=== PATIENT | male | born 1950 | race Caucasian/White ===

== ENCOUNTER 2020-04-09 09:31 | Outpatient (REF) | payer MEDICARE, SELFPAY ==
[2020-04-09 11:47] LABS: Anion Gap 11 (12-20); Blood Urea Nitrogen 19 mg/dL (9-16); Calcium 8.7 mg/dL (8.4-10.2); Carbon Dioxide 29 mmol/L (22-29); Chloride 104 mmol/L (96-108); Cholesterol 219 mg/dL; Estimated Glomerular Filt Rate > 60; Glucose Fasting 100 mg/dL (60-99); HDL Cholesterol 67 mg/dL; LDL Cholesterol Calculated 140 mg/dl; Potassium 4.6 mmol/l (3.3-5.1); Sodium 139 mmol/L (135-145); Triglycerides 63 mg/dL
[2020-04-09 11:56] LABS: Prostate Specific Antigen Scr 1.37 ng/mL (<0.05-4.0); TSH reflex Free T4 1.79 mIU/mL (0.32-4.0)
== END 2020-04-09 09:32 | disposition home or self-care (01) ==
LOC: HO.HMGCLDS 09:31
PROVIDERS: PCP Nurse Practitioner Family; Visit Provider Nurse Practitioner Family
DX: E78.5 Hyperlipidemia, unspecified (principal); R42 Dizziness and giddiness; Z12.5 Encounter for screening for malignant neoplasm of prostate
CPT/HCPCS: 80048; 80061; 84153; 84443

== ENCOUNTER → 2020-04-25 14:14 | Outpatient (BNVA) | payer MEDICARE, SELFPAY | PROVIDERS: PCP Nurse Practitioner Family; Visit Provider Physician Assistant Medical | DX: Z76.89 Persons encountering health services in other specified circumstances (principal) | CPT/HCPCS: G0296 ==

== ENCOUNTER 2020-05-08 12:12 | Outpatient (REF) | payer MEDICARE, SELFPAY ==
[2020-05-08 13:35] LABS: Hematocrit 47.1 % (42-52); Hemoglobin 15.7 g/dl (14.0-18.0); Mean Corpuscular HGB Conc 33.3 g/dl (31.0-36.0); Mean Corpuscular Hemoglobin 31.5 pg (27.0-33.0); Mean Corpuscular Volume 94.4 fL (80-98); Mean Platelet Volume 11.5 fL (9.4-12.4); Platelet Count 185 X10*3/uL (160-400); Red Blood Count 4.99 X10*6/uL (4.60-5.80); Red Cell Distribution Width 13.5 % (11.0-16.0); White Blood Count 7.6 X10*3/uL (4.8-10.8)
[2020-05-08 14:13] LABS: Alanine Aminotransferase 11 U/L (0-40); Albumin Level 4.1 g/dL (3.5-5.0); Alkaline Phosphatase 44 U/L (39-117); Anion Gap 10 (12-20); Aspartate Amino Transferase 11 U/L (5-37); Bilirubin Total 0.5 mg/dL (0.0-1.0); Blood Urea Nitrogen 9 mg/dL (9-16); Calcium 8.5 mg/dL (8.4-10.2); Carbon Dioxide 30 mmol/L (22-29); Chloride 106 mmol/L (96-108); Estimated Glomerular Filt Rate > 60; Glucose Random 98 mg/dL (60-115); Potassium 4.5 mmol/l (3.3-5.1); Sodium 141 mmol/L (135-145); Total Protein 6.3 g/dL (6.5-8.0)
== END 2020-05-08 12:13 | disposition home or self-care (01) ==
LOC: HO.HMGCLDS 12:12
PROVIDERS: PCP Nurse Practitioner Family; Visit Provider Nurse Practitioner Family
DX: R42 Dizziness and giddiness (principal); Z12.11 Encounter for screening for malignant neoplasm of colon
CPT/HCPCS: 36415; 80053; 85027

== ENCOUNTER 2020-05-09 09:00 | Outpatient (REF) | payer MEDICARE, SELFPAY ==
--- NOTE | 2020-05-09 09:03 | CT_ITS ---
EXAMINATION: CT CHEST SCREENING CLINICAL INFORMATION: Nicotine dependence. COMPARISON: None. TECHNIQUE: Multidetector volumetric CT imaging of the chest is performed without contrast using low dose technique. Additional 2D coronal and sagittal reformatted images and axial 3D maximum intensity projection (MIP) images are generated on the CT workstation. This CT examination was performed using dose optimization techniques as appropriate, variously including the following: *Automated exposure control *Adjustment of mA and/or kV according to patient size (this includes techniques or standardized protocols for targeted exams where dose is matched to indication/reason for exam; i.e. extremities or head) *Use of iterative reconstruction technique DLP: 64 mGy-cm FINDINGS: LUNGS: There are punctate 1-2 mm micronodules in the right upper lobe axial image 38/5, image 47/5, left upper lobe image 64/5, 179/5, tiny 1 mm calcified nodules granuloma versus vascular right lower lobe superior segment image 234/5. The lungs are hyperinflated with minimal atelectasis or scarring right lung base. MEDIASTINUM: The thyroid lobes are symmetrical and normal. The central trachea and the bronchi are widely patent. Heart size and the great vessels are normal caliber. Minimal coronary artery calcifications are seen. No pericardial effusion seen. No abnormal mediastinal lymph nodes seen. PLEURA: There is no pleural effusion, calcification or thickening. AXILLA: No abnormal axillary lymph nodes seen. The chest wall appears unremarkable. UPPER ABDOMEN: Visualized liver, spleen, pancreas, and bilateral adrenal glands are unremarkable. OSSEOUS STRUCTURES: No lytic or sclerotic process seen. There is mild ventral spondylosis mid dorsal spine. CT/CT lung screening IMPRESSION: Hyperinflation with small micronodules. No mass or consolidation seen. ASSESSMENT: Lung-RADS category 2: Benign. RECOMMENDATION: Low-dose annual CT chest.
== END 2020-05-09 09:01 | disposition home or self-care (01) ==
LOC: HO.CT 09:00
PROVIDERS: PCP Nurse Practitioner Family; Visit Provider Physician Assistant Medical
DX: Z12.2 Encounter for screening for malignant neoplasm of respiratory organs (principal); F17.210 Nicotine dependence, cigarettes, uncomplicated
CPT/HCPCS: 71250

== ENCOUNTER 2020-09-01 06:59 | Outpatient (REF) | payer MEDICARE, SELFPAY ==
[2020-09-01 11:54] LABS: Cholesterol 201 mg/dL; HDL Cholesterol 60 mg/dL; LDL Cholesterol Calculated 124 mg/dl; Triglycerides 87 mg/dL
== END 2020-09-01 07:00 | disposition home or self-care (01) ==
LOC: HO.HMGCLDS 06:59
PROVIDERS: PCP Nurse Practitioner Family; Visit Provider Nurse Practitioner Family
DX: E78.5 Hyperlipidemia, unspecified (principal)
CPT/HCPCS: 36415; 80061

== ENCOUNTER 2020-10-28 08:54 | Day surgery (SDC) | payer MEDICARE, SELFPAY ==
--- NOTE | 2020-10-27 09:48 | HO.ANESPROP2 ---
Documented by User: Katerina Gloria 10/27/20 09:49 HPI - Anesthesia Eval Consult details Narrative: 70yo M for Colonoscopy PMFSH Active Problems Active Problems: All Active Problems (Updated 04/25/20 @ 13:26 by Anna Martinez PA-C) Nicotine dependence, cigarettes, uncomplicated (Acute) Tubular adenoma of colon (Acute) Dyslipidemia (Acute) Smoker (Acute) Screening for malignant neoplasm of colon (Acute) Dizziness (Acute) Screening PSA (prostate specific antigen) (Acute) Physical exam (Acute) Past Medical History Medical History GERD (gastroesophageal reflux disease) Nicotine dependence, cigarettes, uncomplicated Smoker Tubular adenoma of colon Family History Family History Father Parkinsons disease Mother No problems noted. Surgical History Surgical History History of appendectomy History of colonoscopy History of right inguinal hernia repair 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 (Updated 10/28/20 @ 10:57 by Kristan Fraser) Alcohol intake: current Alcohol intake frequency: a few times a month Patient Tobacco Use Status: Current everyday Tobacco user Tobacco use type: Cigarette Cigarette Packs Per Day: 1 Cigarettes Per Day: 20.0 Years Smoked: 1990 Smoked in Last 30 Days: Yes Use of substances other than those prescribed or required for medical reasons: Yes Substance Use Type: Marijuana Last Used Substance Other:: Yesterday Are you DNR?: No Advance Directives: No Advance Directives Information Provided: Yes Recently lost weight without trying: Yes How much weight loss: 2-13 pounds Eating poorly because of decreased appetite: No Nutrition screen score: 3 Nutrition Risks: No Nutritional Risk Poor oral hygiene: No Meds Allergies Allergy/AdvReac Type Severity Reaction Status Date / Time No Known Allergies Allergy Unverified 09/02/20 11:14 Home Medications Medication Instructions Recorded Confirmed Last Taken Type No Known Home Meds 09/02/20 09/02/20 Unknown History Exam Exam Date and Time: October 27, 2020 0948 Assessment and Plan Assessment Anesthesia Assessment: Chart Reviewed Documented by User: Kristan Fraser 10/28/20 10:59 PMF Past Medical History Medical History GERD (gastroesophageal reflux disease) Nicotine dependence, cigarettes, uncomplicated Smoker Tubular adenoma of colon Family History Family History Father Parkinsons disease Mother No problems noted. Family history of problems with anesthesia: No Surgical History Surgical History History of appendectomy History of colonoscopy History of right inguinal hernia repair History of Problems with Anesthesia: No 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 (Updated 10/28/20 @ 10:57 by Kristan Fraser) Alcohol intake: current Alcohol intake frequency: a few times a month Patient Tobacco Use Status: Current everyday Tobacco user Tobacco use type: Cigarette Cigarette Packs Per Day: 1 Cigarettes Per Day: 20.0 Years Smoked: 1990 Smoked in Last 30 Days: Yes Use of substances other than those prescribed or required for medical reasons: Yes Substance Use Type: Marijuana Last Used Substance Other:: Yesterday Are you DNR?: No Advance Directives: No Advance Directives Information Provided: Yes Recently lost weight without trying: Yes How much weight loss: 2-13 pounds Eating poorly because of decreased appetite: No Nutrition screen score: 3 Nutrition Risks: No Nutritional Risk Poor oral hygiene: No Meds Allergies Allergy/AdvReac Type Severity Reaction Status Date / Time No Known Allergies Allergy Unverified 09/02/20 11:14 Home Medications Medication Instructions Recorded Confirmed Last Taken Type No Known Home Meds 09/02/20 09/02/20 Unknown History Exam Height,Weight and Vital Signs: Vital Signs Temp Pulse Resp BP Pulse Ox 10/28/20 09:17 97.8 F 75 16 124/85 98 Airway Mallampati Class: II TM Dist: >3cm Neck ROM: Full Loose/Missing/Broken Teeth: Yes Heart: RRR Lungs: CTAB Assessment and Plan Assessment Anesthesia Assessment: Anesthesia Plan Discussed and Chart Reviewed Final Anesthetic Review NPO: Yes ASA Class: II Final Preanesthetic Review: No Changes in Pt Med Stat, Meds/Allgs Chart Reviewed, Consent Obtained/Reviewed and Anes Risks/Benef Reviewed Patient Risk: Low Procedure Risk: Low Assessment/Block/Sedation in SS: Assess/Block/Sedation-SS Anesthetic Plan Anesthetic Plan: MAC: Disposition: Standard PACU
[2020-10-28 09:04] VITALS: BMI 26.2
[2020-10-28 09:17] VITALS: BP 124/85; PULSE 75; RESP 16; TEMP 36.6; O2SAT 98
[2020-10-28] MEDS: Lactated Ringers 1,000 ML 100 ML IVCONT (09:26)
--- NOTE | 2020-10-28 10:39 | P.OP_ITS ---
Operative Note Operative Note Date of Service: 10/28/20 Narrative: Pre-op diagnosis: Colon cancer screening, history of colon polyps Post-op diagnosis: other (Colon polyps, diverticulosis and hemorrhoids) Procedure: COLONOSCOPY TILL CECUM WITH SNARE POLYPECTOMY AND SUBMUCOSAL INJECTION Consent: Indications for the procedure and potential complications of bleeding, perforation, reaction to medications and missed diagnosis were discussed with the patient and informed consent was obtained. Instrument: Olympus PCF H 190 L variable stiffness pediatric colonoscope Monitoring: Vital signs and clinical assessment, intermittent blood pressure monitoring, continuous EKG monitoring, Pulse oximetry and Carbon Dioxide monitoring were done throughout the procedure. Colon withdrawl time was 55 minutes. Procedure: The patient was placed in the left lateral decubitis position and pre-procedure medications were administered. After a digital rectal examination of the ano-rectum, the video colonoscope was inserted into the rectum and advanced through the colon to the cecum. The colonoscope was slowly withdrawn in a retrograde panoramic fashion and the colon mucosa was carefully examined including a retroflexed view of the rectum. Findings and interventions are described below. Procedure Difficulty: Colon was long and tortuous and there was some loop formation, no maneuvers were required Findings: Terminal Ileum: Not evaluated Cecum: A 2 cms flat polyp raised with 5 cc of Orise solution and removed with a hot snare. Ascending Colon: Two 8 -15 mm sessile polyps raised with 3 cc of Orise solution and removed with a hot snare. 10 mm sessile polyp removed with a cold snare Transverse Colon: Two 8-10 mm sessile polyps removed with a cold snare Descending Colon: A 12-15 mm sessile polyp at 60 cms - difficult to snare due to position despite repositioning pt to a supine position. Donna ink injected just distal to the polyp. Polyp was removed with hot snare. Sigmoid Colon: Severe diverticulosis with luminal narrowing Rectum: Normal Ano-rectum: Moderate internal hemorrhoids Colon preparation: Good after some irrigation Impression and Post Procedure Diagnosis: Colonoscopy Findings: Seven medium to large sized polyps removed Moderate diverticulosis seen in the left colon Moderate hemorrhoids on retroflexed exam. Plan: Await pathology results. Patient will be sent a letter with results. Repeat Colonoscopy interval based on path results - in 1-2 years if polyps are adenomatous. Above findings were reviewed with the patient and colon polyps and diverticulosis handouts were given in the discharge area Surgeon: Nghia Drummond MD Anesthesia: MAC (Alyse Rucker CRNA) Was an Radiologic Technologist Chief used for this Procedure?: Yes Radiologic Technologist Chief: Wenceslao Sow Estimated blood loss (mL): 0 Pathology: other (A: CECAL POLYP-ORISE USED B: ASCENDING COLON POLYPS-ORISE USED C: TRANSVERSE COLON POLYP D: DESCENDING COLON POLYP) Condition: stable Disposition: PACU
--- NOTE | 2020-10-28 10:39 | MHC.SHP ---
Pre-Procedural Eval Section A The patient is an INPATIENT: No The History & Physical has been completed within 30 days and I have reviewed it.: No Section B Chief Complaint: Screening Details of Present Illness: Colon cancer screening, history of colon polyps Relevant Family History (Specify if Yes): No Relevant 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: Tobacco Use Present Medications: see Short Stay Collaborative assessment Medical History: Significant History (GERD (gastroesophageal reflux disease) Smoker) History of Previous Operations: Relevant previous surgery/procedure and date(s) (Appendectomy, right inguinal hernia repair, status post colonoscopy x 2) Allergies: Allergies Allergy/AdvReac Type Severity Reaction Status Date / Time No Known Allergies Allergy Unverified 09/02/20 11:14 Review of Systems Sugical H&P ROS: Negative: Constitution, Cardiovascular, Respiratory and Gastrointestinal Exam Surgical H&P Exam: Normal: Heart, Normal: Lungs, Normal: Extremities and Normal: Abdomen Plan Diagnosis/Plan: Unchanged I have reviewed the history and physical and performed a pertinent physical examination on my patient. No changes have occurred unless specified.
[2020-10-28 12:02] VITALS: BP 111/75; PULSE 82; RESP 16; TEMP 36.2; O2SAT 96
[2020-10-28 12:20] VITALS: BP 117/64; PULSE 50; RESP 16; O2SAT 98
[2020-10-28 12:40] VITALS: BP 113/77; PULSE 53; RESP 18; TEMP 36.1; O2SAT 98
[2020-10-28 13:09] VITALS: BP 125/74; PULSE 58; RESP 16; O2SAT 99
[2020-10-28 13:11] VITALS: BP 133/71; PULSE 59; RESP 20; O2SAT 98
== END 2020-10-28 13:52 | disposition home or self-care (01) ==
PROVIDERS: PCP Nurse Practitioner Family; Visit Provider Internal Medicine Gastroenterology
PROC: 0DJD8ZZ Inspection of Lower Intestinal Tract, Via Natural or Artificial Opening Endoscopic (ICD-10-PCS; CPT 45378; principal; 2020-10-28 10:00)
DX: Z12.11 Encounter for screening for malignant neoplasm of colon (principal); Z86.010 Personal history of colon polyps; D12.0 Benign neoplasm of cecum; D12.2 Benign neoplasm of ascending colon; D12.3 Benign neoplasm of transverse colon; D12.4 Benign neoplasm of descending colon; K57.30 Diverticulosis of large intestine without perforation or abscess without bleeding; K64.8 Other hemorrhoids; K21.9 Gastro-esophageal reflux disease without esophagitis; F17.210 Nicotine dependence, cigarettes, uncomplicated
CPT/HCPCS: 45385; 45381; 88305

== ENCOUNTER 2020-11-18 08:40 | Outpatient (REF) | payer MEDICARE, SELFPAY ==
--- NOTE | ~2020-11-18 | XR_ITS ---
EXAMINATION: FINGER AND LEFT SHOULDER X-RAY CLINICAL INFORMATION: Pain COMPARISON: None TECHNIQUE: 3 views of the right thumb and is of the left shoulder FINDINGS: Right thumb: No fracture or dislocation is seen. There is mild arthritis at the IP and MCP joints of the thumb with small osteophytes and joint space narrowing. There is joint space narrowing, osteophyte formation and radial subluxation of the first metacarpal bone with respect to the trapezium at the first [facility] joint. Soft tissues are unremarkable. Left shoulder: Bone alignment is normal. No fracture or dislocation is seen. There is arthritis at the glenohumeral and acromioclavicular joints with joint space narrowing and osteophyte formation. Soft tissues are unremarkable. 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
--- NOTE | ~2020-11-18 | XR_ITS ---
EXAMINATION: FINGER AND LEFT SHOULDER X-RAY CLINICAL INFORMATION: Pain COMPARISON: None TECHNIQUE: 3 views of the right thumb and is of the left shoulder FINDINGS: Right thumb: No fracture or dislocation is seen. There is mild arthritis at the IP and MCP joints of the thumb with small osteophytes and joint space narrowing. There is joint space narrowing, osteophyte formation and radial subluxation of the first metacarpal bone with respect to the trapezium at the first CORRECTION joint. Soft tissues are unremarkable. Left shoulder: Bone alignment is normal. No fracture or dislocation is seen. There is arthritis at the glenohumeral and acromioclavicular joints with joint space narrowing and osteophyte formation. Soft tissues are unremarkable. 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
== END 2020-11-18 08:41 | disposition home or self-care (01) ==
LOC: HO.HMGCX 08:40
PROVIDERS: PCP Nurse Practitioner Family; Visit Provider Nurse Practitioner Family
DX: M25.512 Pain in left shoulder (principal); M79.644 Pain in right finger(s)
CPT/HCPCS: 73030; 73140

== ENCOUNTER 2021-03-19 13:21 | Outpatient (REF) | payer MEDICARE, SELFPAY ==
--- NOTE | ~2021-03-19 | XR_ITS ---
EXAMINATION: XR KNEE, RIGHT CLINICAL INFORMATION: Right knee pain COMPARISON: None TECHNIQUE: Four views of the right knee. FINDINGS: There is no evidence of acute fracture or dislocation of the right knee. No right knee effusion. Right knee joint spaces are maintained. Small calcific density is seen within the soft tissues about the lateral aspect of the knee joint at the level of the inferior aspect of the patella. XR/XR knee RT 4V IMPRESSION: No significant bony abnormality of the right knee identified.
== END 2021-03-19 13:22 | disposition home or self-care (01) ==
LOC: HO.HMGCX 13:21
PROVIDERS: PCP Nurse Practitioner Family; Visit Provider Nurse Practitioner Family
DX: M25.561 Pain in right knee (principal)
CPT/HCPCS: 73564

== ENCOUNTER 2022-01-11 09:08 | Outpatient (REF) | payer MEDICARE, SELFPAY ==
[2022-01-11 12:00] LABS: Syphilis Screen Nonreactive (Nonreactive)
[2022-01-11 12:12] LABS: HIV AB/AG Nonreactive (Nonreactive); HIV Num 1 0.06 S/CO (0.00-0.99); ~HepC Num1 0.05 S/CO (0.00-0.79); ~Hepatitis C Antibody Nonreactive (Nonreactive)
[2022-01-16 21:26] LABS: HSV 1 IgM IFA Negative (Negative); HSV 2 IgM IFA Negative (Negative)
== END 2022-01-11 09:09 | disposition home or self-care (01) ==
LOC: HO.HMGCLDS 09:08
PROVIDERS: PCP Nurse Practitioner Family; Visit Provider Nurse Practitioner Family
DX: Z11.3 Encounter for screening for infections with a predominantly sexual mode of transmission (principal); Z11.4 Encounter for screening for human immunodeficiency virus [HIV]
CPT/HCPCS: 36415; 86695; 86696; 86780; 86803; 87389; 87491; 87591

== ENCOUNTER 2022-01-11 11:42 | Outpatient (REF) | payer MEDICARE, SELFPAY ==
[2022-01-11 14:09] LABS: CT PCR NOT DETECTED (Not Detect.); NG PCR NOT DETECTED (Not Detect.)
== END 2022-01-11 11:43 | disposition home or self-care (01) ==
LOC: HO.LNP 11:42
PROVIDERS: Visit Provider Nurse Practitioner Family
DX: Z13.89 Encounter for screening for other disorder (principal)
CPT/HCPCS: 87491; 87591

== ENCOUNTER 2022-02-18 10:18 | Outpatient (REF) | payer MEDICARE, SELFPAY ==
[2022-02-18 11:32] LABS: MANUAL DIFF FLAG NO
[2022-02-18 11:42] LABS: Basophils Absolute Auto 0.1 X10*3/uL (0.0-0.2); Basophils Percent Auto 1.3 % (0-2); Eosinophils Absolute Auto 0.2 X10*3/uL (0.0-0.4); Eosinophils Percent Auto 2.7 % (0-4); Hematocrit 46.9 % (42.0-52.0); Hemoglobin 15.7 g/dl (14.0-18.0); Imm Gran Abs Auto 0.02 X10*3/uL (0.00-0.03); Imm Gran Pct Auto 0.3 % (0.0-0.4); Lymphocytes Absolute Auto 1.8 X10*3/uL (1.2-4.9); Lymphocytes Percent Auto 26.6 % (20-40); Mean Corpuscular HGB Conc 33.5 g/dl (31.0-36.0); Mean Corpuscular Hemoglobin 31.3 pg (27.0-33.0); Mean Corpuscular Volume 93.4 fL (80.0-98.0); Mean Platelet Volume 10.6 fL (9.4-12.4); Monocytes Absolute Auto 0.7 X10*3/uL (0.1-1.2); Monocytes Percent Auto 10.9 % (2-11); Neutrophils Absolute Auto 3.9 x10*3/uL (2.0-8.3); Neutrophils Percent Auto 58.2 % (45-73); Platelet Count 217 X10*3/uL (160-400); Red Blood Count 5.02 X10*6/uL (4.60-5.80); Red Cell Distribution Width 13.7 % (11.0-16.0); White Blood Count 6.7 X10*3/uL (4.8-10.8)
[2022-02-18 11:57] LABS: Appearance Urine Cloudy; Color Urine Yellow; Glucose Urine UA Negative (Negative); Leukocyte Esterase Urine Negative (Negative); Nitrite Urine Negative (Negative); Urine Blood Negative (Negative); Urine Ketones Negative (Negative); Urine Protein Negative (Neg-Trace)
[2022-02-18 12:09] LABS: Alanine Aminotransferase 15 U/L (0-40); Albumin Level 4.2 g/dL (3.5-5.0); Alkaline Phosphatase 42 U/L (39-117); Anion Gap 12 (12-20); Aspartate Amino Transferase 12 U/L (5-37); Bilirubin Total 0.8 mg/dL (0.0-1.0); Blood Urea Nitrogen 14 mg/dL (9-16); Calcium 9.1 mg/dL (8.4-10.2); Carbon Dioxide 25 mmol/L (22-29); Chloride 106 mmol/L (96-108); Cholesterol 213 mg/dL; Estimated Glomerular Filt Rate > 60; Glucose Fasting 99 mg/dL (60-99); HDL Cholesterol 65 mg/dL; LDL Cholesterol Calculated 136 mg/dl; Potassium 4.4 mmol/L (3.3-5.1); Sodium 139 mmol/L (135-145); Total Protein 6.4 g/dL (6.5-8.0); Triglycerides 62 mg/dL
[2022-02-18 12:32] LABS: Prostate Specific Antigen Scr 1.49 ng/mL (<0.05-4.0); TSH reflex Free T4 1.66 uIU/mL (0.32-4.0)
== END 2022-02-18 10:19 | disposition home or self-care (01) ==
LOC: HO.HMGCLDS 10:18
PROVIDERS: PCP Nurse Practitioner Family; Visit Provider Nurse Practitioner Family
DX: Z12.5 Encounter for screening for malignant neoplasm of prostate (principal); E78.5 Hyperlipidemia, unspecified
CPT/HCPCS: 36415; 80053; 80061; 81003; 84153; 84443; 85025

== ENCOUNTER 2022-03-05 08:59 | Outpatient (REF) | payer MEDICARE, SELFPAY ==
--- NOTE | ~2022-03-05 | CT_ITS ---
EXAMINATION: CT CHEST SCREENING CLINICAL INFORMATION: Current smoker x1 pack per day x30 years. COMPARISON: CT chest 05/09/2020. TECHNIQUE: Multidetector volumetric CT imaging of the chest is performed without contrast using low dose technique. Additional 2D coronal and sagittal reformatted images and axial 3D maximum intensity projection (MIP) images are generated on the CT workstation. This CT examination was performed using dose optimization techniques as appropriate, variously including the following: *Automated exposure control *Adjustment of mA and/or kV according to patient size (this includes techniques or standardized protocols for targeted exams where dose is matched to indication/reason for exam; i.e. extremities or head) *Use of iterative reconstruction technique DLP: 65 mGy-cm FINDINGS: LUNGS: The lungs are well expanded and clear of acute pneumonic consolidation. Again visualized are 1-2 mm noncalcified nodules in both upper lobes which are stable. 1 mm focal nodules along the left major fissure axial image 201/6 and 211/6 are stable. No new pulmonary nodules visualized. There are focal calcified nodular densities in the right lower lobe which are stable. Focal atelectatic changes are seen in the right middle lobe anteriorly and right lower lobe posterior basal segment. MEDIASTINUM: The thyroid lobes are symmetric and normal. The central trachea and the bronchi are widely patent. The heart size and the great vessels are normal caliber. No abnormal size mediastinal or hilar lymph nodes seen. There is no pericardial effusion. CORONARY ARTERY CALCIFICATION: Mild coronary artery calcifications are present. PLEURA: There is no pleural effusion. No pleural mass or thickening. AXILLA: No lymphadenopathy. UPPER ABDOMEN: Visualized liver, spleen and gallbladder is unremarkable. OSSEOUS STRUCTURES: Mild superior endplate deformity T5, T7 vertebrae are stable since 2019. No aggressive lytic or sclerotic process seen. CT/CT lung screening IMPRESSION: Hyperinflation with multiple 1-2 micronodules both upper lobes, nodular densities in the left major fissure likely lymph nodes are all stable. No new nodules or abnormal mediastinal lymphadenopathy seen. ASSESSMENT: Lung-RADS category 2: Benign RECOMMENDATION: Low-dose annual CT chest.
== END 2022-03-05 09:00 | disposition home or self-care (01) ==
LOC: HO.CT 08:59
PROVIDERS: PCP Nurse Practitioner Family; Visit Provider Physician Assistant Medical
DX: Z12.2 Encounter for screening for malignant neoplasm of respiratory organs (principal); F17.210 Nicotine dependence, cigarettes, uncomplicated
CPT/HCPCS: 71271

== ENCOUNTER 2022-08-18 09:36 | Outpatient (REF) | payer MEDICARE, SELFPAY ==
[2022-08-18 12:29] LABS: Alanine Aminotransferase 16 U/L (0-40); Albumin Level 4.1 g/dL (3.5-5.0); Alkaline Phosphatase 44 U/L (39-117); Anion Gap 12 (12-20); Aspartate Amino Transferase 17 U/L (5-37); Bilirubin Total 0.8 mg/dL (0.0-1.0); Blood Urea Nitrogen 17 mg/dL (9-16); Calcium 8.8 mg/dL (8.4-10.2); Carbon Dioxide 27 mmol/L (22-29); Chloride 108 mmol/L (96-108); Cholesterol 196 mg/dL; Estimated Glomerular Filt Rate > 60; Glucose Fasting 92 mg/dL (60-99); HDL Cholesterol 61 mg/dL; LDL Cholesterol Calculated 128 mg/dl; Potassium 4.2 mmol/L (3.3-5.1); Sodium 143 mmol/L (135-145); Total Protein 6.2 g/dL (6.5-8.0); Triglycerides 39 mg/dL
== END 2022-08-18 09:37 | disposition home or self-care (01) ==
LOC: HO.HMGCLDS 09:36
PROVIDERS: PCP Nurse Practitioner Family; Visit Provider Nurse Practitioner Family
DX: E78.5 Hyperlipidemia, unspecified (principal)
CPT/HCPCS: 36415; 80053; 80061

== ENCOUNTER 2023-04-01 08:00 | Outpatient (AMB) | payer MEDICARE, SELFPAY ==
--- NOTE | 2023-04-01 08:03 | AM.OFFWIN_ITS ---
Intake Vital Signs 04/01/23 08:08 Height 5 ft 9 in Weight 195 lb BMI 28.8 BP 112/70 Blood Pressure Location Rt brachial Position Sitting Pulse 80 Pulse Source Pulse Oximeter Temp 97.8 F Temp Source Temporal Artery Scan Pulse Oximetry (%) 98 Oxygen Delivery Method Room Air Intake Visit Reasons: EST/growth in left armpit(lobby) Intake Note: pt is here for c/o growth in left armpit Patient Tobacco Use Status: Current everyday Tobacco user Allergies No Known Allergies Allergy (Verified 04/01/23 08:08) Do you need a note to return to daycare/school/sports/work: Yes HPI HPI Comments History of Present Illness Details This is a 73-year-old male who presents to the office today for sick visit. Patient complaining of he growth under his left armpit. Patient states he had a similar growth under his right armpit several weeks ago and he was treated with antibiotics and this resolved. He then started to develop a growth under his left armpit about 2 weeks ago. He states that this growth has started to improve and has started to drain. He states that it was painful but is no longer painful. He denies any fevers or chills. [facility] Medical History GERD (gastroesophageal reflux disease) Nicotine dependence, cigarettes, uncomplicated Smoker Tubular adenoma of colon Surgical History History of appendectomy History of colonoscopy History of right inguinal hernia repair Family History (Updated 08/18/22 @ 09:07 by Jennifer Oliva [facility]) Father Parkinsons disease Mother No problems noted. 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 Housing: House Alcohol intake: current Alcohol intake frequency: a few times a month Patient Tobacco Use Status: Current everyday Tobacco user Tobacco use type: Cigarette Cigarettes Per Day: 12 Years Smoked: 1989 e-Cigarette/Vaping Use: Never Used Second Hand Smoke Exposure: No Substance Use Type: Marijuana service: No Current occupational status: retired Cognitive needs: No Hearing needs: No Vision needs: No Review of Systems Const All systems reviewed & are unremarkable except as noted in HPI and below Reports no additional complaints Eyes Reports no additional complaints ENT Reports no additional complaints Card Reports no additional complaints Resp Reports no additional complaints GI Reports no additional complaints Reports no additional complaints Musc Reports no additional complaints Skin/Breast Reports system reviewed and no additional complaints, except as documented Neuro Reports no additional complaints Psych Reports no additional complaints Endo Reports no additional complaints [place]/Lymph Reports no additional complaints Aller/Immun Reports no additional complaints Physical Exam Vital Signs: Last Vital Signs Temp 97.8 F 04/01/23 08:08 Pulse 80 04/01/23 08:08 BP 112/70 04/01/23 08:08 Pulse Ox 98 04/01/23 08:08 Oxygen Delivery Method Room Air 04/01/23 08:08 BMI result Body Mass Index 28.8 Const Other: Vital signs reviewed. Constitutional: Non-toxic appearing. No acute distress. Well-developed and well-nourished. HEENT: Normocephalic and atraumatic. Skin: Small abscess of the left axillary region with active purulent drainage. No surrounding erythema. No lymphangitic streaking. Neck: Full and painless range of motion. No cervical lymphadenopathy. Cardio: Regular rate. No lower extremity edema. No JVD. Pulmonary: No respiratory distress. No accessory muscle usage. Gastrointestinal: Soft, nontender, and nondistended in all 4 quadrants. Musculoskeletal: Normal range of motion in joints throughout the body. No deformity or other signs of injury. Neuro: Alert and oriented x4. Cranial nerves 2-12 grossly intact. No focal deficits appreciated. Psych: Normal mood and affect. Assessment & Plan Assessment & Plan (1) Abscess of left axilla: Code(s): L02.412 - Cutaneous abscess of left axilla Plan: This is a 73-year-old male presenting to the office with an abscess of his left axillary region. The abscess is actively draining and patient states that it has significantly improved. I offered incision and drainage to the patient, but he declined as the abscess was already draining. I also offered to pack the abscess in order to allow continued drainage, but the patient declined. Patient's vital signs are stable, he is overall nontoxic appearing, and his ph ysical exam is otherwise benign. There is no evidence of cellulitis or systemic infection. Patient has been sent home on p.o. sulfamethoxazole/trimethoprim twice daily times 10 days. I encouraged the patient to return to the office if this abscess were to stop draining so he can undergo incision and drainage. Patient was advised to follow-up here or proceed to the emergency room if he were to develop persistent/worsening symptoms, fever/chills, or other signs of a systemic infection. Patient verbalizes understanding and he is in agreement with the plan. Medications: New sulfamethoxazole-trimethoprim 800-160 mg (Bactrim DS) 1 tab PO BID 20 tabs 0RF Coding Level of Care Code Est Pt Level 3 (53882) Diagnoses Abscess of left axilla L02.412
[2023-04-01 08:08] VITALS: BP 112/70; PULSE 80; TEMP 36.6; O2SAT 98; BMI 28.8
== END 2023-04-01 08:57 | disposition home or self-care (01) ==
PROVIDERS: PCP Nurse Practitioner Family; Visit Provider Physician Assistant Medical
DX: L02.412 Cutaneous abscess of left axilla (principal)
CPT/HCPCS: 99213

== ENCOUNTER 2023-05-02 08:32 | Outpatient (REF) | payer MEDICARE, SELFPAY ==
--- NOTE | ~2023-05-02 | CT_ITS ---
EXAMINATION: CT CHEST SCREENING CLINICAL INFORMATION: Current smoker x1 pack per day x31 years. COMPARISON: CT chest 03/05/2022 and 05/09/2020. TECHNIQUE: Multidetector volumetric CT imaging of the chest is performed without contrast using low dose technique. Additional 2D coronal and sagittal reformatted images and axial 3D maximum intensity projection (MIP) images are generated on the CT workstation. This CT examination was performed using dose optimization techniques as appropriate, variously including the following: *Automated exposure control *Adjustment of mA and/or kV according to patient size (this includes techniques or standardized protocols for targeted exams where dose is matched to indication/reason for exam; i.e. extremities or head) *Use of iterative reconstruction technique DLP: 58 mGy-cm FINDINGS: LUNGS: The lungs are well expanded and clear of acute pneumonic consolidation. Again visualized are 1-2 mm noncalcified nodules in both upper lobes which are stable (for example left upper lobe 5:71 and right upper lobe 5:98). A 2 mm subpleural right middle lobe nodule is stable (5:287 compare prior 6:310). Two tiny 1 mm focal nodules along the left major fissure are stable. No new or suspicious pulmonary nodules visualized. There are focal calcified nodular densities in the right lower lobe which are stable. Focal atelectatic changes are again noted in the right middle lobe anteriorly and right lower lobe posterior basal segment. MEDIASTINUM: The thyroid lobes are symmetric and normal. The central trachea and the bronchi are widely patent. The heart size and the great vessels are normal caliber. No abnormal size mediastinal or hilar lymph nodes seen. There is no pericardial effusion. CORONARY ARTERY CALCIFICATION: Moderate coronary artery calcifications are present. PLEURA: There is no pleural effusion. No pleural mass or thickening. AXILLA: No lymphadenopathy. UPPER ABDOMEN: Unremarkable. OSSEOUS STRUCTURES: Mild superior endplate deformities at T5 and T7 vertebrae are stable since 2019. No aggressive lytic or sclerotic process seen. CT/CT lung screening IMPRESSION: Multiple 1-2 micronodules both upper lobes and nodular densities in the left major fissure likely lymph nodes are all stable. No new nodules or abnormal mediastinal lymphadenopathy seen. ASSESSMENT: Lung-RADS category 2: Benign. RECOMMENDATION: Low-dose annual CT chest.
== END 2023-05-02 08:33 | disposition home or self-care (01) ==
LOC: HO.CT 08:32
PROVIDERS: PCP Nurse Practitioner Family; Visit Provider Physician Assistant Medical
DX: Z12.2 Encounter for screening for malignant neoplasm of respiratory organs (principal); F17.210 Nicotine dependence, cigarettes, uncomplicated
CPT/HCPCS: 71271

== ENCOUNTER 2023-05-27 10:48 | Outpatient (AMB) | payer MEDICARE, SELFPAY ==
--- NOTE | 2023-05-27 12:29 | AM.OFFWIN_ITS ---
Intake Vital Signs 05/27/23 12:30 Height 5 ft 9 in Weight 187 lb 6 oz BMI 27.7 BP 112/62 Blood Pressure Location Rt brachial Position Sitting Pulse 74 Pulse Source Pulse Oximeter Temp 97.9 F Temp Source Temporal Artery Scan Pulse Oximetry (%) 98 Oxygen Delivery Method Room Air Intake Visit Reasons: EP, groin pain ([phone]) Intake Note: Pt is here c/o groin pain. Pt states he has had a hernia before. Patient Tobacco Use Status: Current everyday Tobacco user Allergies No Known Allergies Allergy (Verified 05/30/23 10:32) Do you need a note to return to daycare/school/sports/work: No HPI HPI Comments History of Present Illness Details Patient is a 73yo M who presents to office with L inguinal hernia complaint States it has been present for a few months Only bothers him sometimes Usually is a bump to L groin that comes and goes and he easily can press it back into his stomach Hx of R inguinal hernia repair in the past many years ago No fever, chills nausea or vomiting No diarrhea or constipation No CP or SOB Sometimes uses OTC medicine. Had a sharp episode of pain earlier which has subsided but made him come in today for evaluation. [facility] Medical History GERD (gastroesophageal reflux disease) Nicotine dependence, cigarettes, uncomplicated Smoker Tubular adenoma of colon Surgical History History of appendectomy History of right inguinal hernia repair History of colonoscopy Family History Father Parkinsons disease Mother No problems noted. 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 Housing: House Alcohol intake: current Alcohol intake frequency: a few times a month Patient Tobacco Use Status: Current everyday Tobacco user Tobacco use type: Cigarette Cigarettes Per Day: 12 Years Smoked: 1989 e-Cigarette/Vaping Use: Never Used Second Hand Smoke Exposure: No Substance Use Type: Marijuana service: No Current occupational status: retired Cognitive needs: No Hearing needs: No Vision needs: No Review of Systems Const Denies chills, Denies fatigue and Denies fever(s) ENT Denies sore throat Card Denies chest pain and Denies dyspnea Resp Denies dyspnea GI Reports abdominal pain, Denies melena, Denies change in bowel habits, Denies constipation, Denies diarrhea, Denies nausea and Denies vomiting Denies difficulty urinating Skin/Breast Denies erythema Endo Denies fatigue Physical Exam Vital Signs: Last Vital Signs Temp 97.9 F 05/27/23 12:30 Pulse 74 05/27/23 12:30 BP 112/62 05/27/23 12:30 Pulse Ox 98 05/27/23 12:30 Oxygen Delivery Method Room Air 05/27/23 12:30 BMI result Body Mass Index 27.7 General: Non-toxic, NAD. Speaking full sentences. Skin: Warm dry throughout Eye: EOMI Respiratory: CTA bilaterally. No wheezes, rales or rhonchi Cardiac: RRR. No murmur Abdominal: BS present. No tenderness to light and deep palpation. + palpable L inguinal hernia that is reducible in supine position. No skin erythema, eschar or edema. MSK: Full ROM extremities. Neurology: A/O. No aphasia or facial droop. Gait without abnormality Psych: Good mood and affect Assessment & Plan Assessment & Plan (1) Inguinal hernia: Code(s): K40.90 - Unilateral inguinal hernia, without obstruction or gangrene, not specified as recurrent Qualifiers: Laterality: unilateral Obstruction and gangrene presence: without obstruction or gangrene Recurrence: non-recurrent Qualified Code(s): K40.90 - Unilateral inguinal hernia, without obstruction or gangrene, not specified as recurrent Plan: L sided reducible inguinal hernia on exam No concern for strangulated vs incarcerated He is aware of s/s symptoms that warrant immediate evaluation in the ED Called surgery and he has appointment for Tuesday at 2:45PM Patient gave verbal understanding and had no additional questions or concerns at time of discharge All questions answered Orders: Referrals General Surgery Referral K40.90 - Unilateral inguinal hernia, without obstruction or gangrene, not specified as recurrent Coding Level of Care Code New Pt Level 3 (21372) Diagnoses Non-recurrent unilateral inguinal hernia without obstruction or gangrene K40.90 Laterality: unilateral Obstruction and gangrene presence: without obstruction or gangrene Recurrence: non-recurrent
[2023-05-27 12:30] VITALS: BP 112/62; PULSE 74; TEMP 36.6; O2SAT 98; BMI 27.7
== END 2023-05-27 13:41 | disposition home or self-care (01) ==
PROVIDERS: PCP Nurse Practitioner Family; Visit Provider Physician Assistant
DX: K40.90 Unilateral inguinal hernia, without obstruction or gangrene, not specified as recurrent (principal)
CPT/HCPCS: 99203; 99213

== ENCOUNTER → 2023-05-30 10:25 | Outpatient (BNVA) | payer MEDICARE, SELFPAY | PROVIDERS: PCP Nurse Practitioner Family; Visit Provider Surgery | DX: K40.90 Unilateral inguinal hernia, without obstruction or gangrene, not specified as recurrent (principal) | CPT/HCPCS: 99202 ==

== ENCOUNTER 2023-05-30 10:26 | Outpatient (AMB) | payer MEDICARE, SELFPAY ==
[2023-05-30 10:30] VITALS: BP 145/66; PULSE 83; BMI 27.8
--- NOTE | 2023-05-30 10:30 | MHC.OFFVIS ---
Intake Vital Signs 05/30/23 10:30 Height 5 ft 9 in Weight 188 lb 2 oz BMI 27.8 BP 145/66 H Blood Pressure Location Lt brachial Position Sitting Pulse 83 Intake Visit Reasons: left inguinal hernia Intake Note: Patient is seen in office for evaluation and treatment of a left inguinal hernia. Pt c/o: admits to lump on the left side for aprox 2 months, denies redness, constipation, nausea, vomit, diarrhea, no prior imaging, was seen in urgent care [facility] for the same reason. 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 It is increasing in size, become more symptomatic. He had an episode this past weekend where he was fortunately able to reduce the hernia him self. Patient has no other GI issues or complaints. He is tolerating his diet he is having normal bowel habits. 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 Chart was reviewed patient evaluated. Status post right inguinal hernia repair approximately 13 years ago. [facility] Medical History GERD (gastroesophageal reflux disease) Nicotine dependence, cigarettes, uncomplicated Smoker Tubular adenoma of colon Surgical History History of appendectomy History of right inguinal hernia repair History of colonoscopy Family History Father Parkinsons disease Mother No problems noted. 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 Housing: House Alcohol intake: current Alcohol intake frequency: a few times a month Patient Tobacco Use Status: Current everyday Tobacco user Tobacco use type: Cigarette Cigarettes Per Day: 12 Years Smoked: 1989 e-Cigarette/Vaping Use: Never Used Second Hand Smoke Exposure: No Substance Use Type: Marijuana service: No Current occupational status: retired Cognitive needs: No Hearing needs: No Vision needs: No Physical Exam Vital Signs: Last Vital Signs Pulse 83 05/30/23 10:30 BP 145/66 H 05/30/23 10:30 BMI result Body Mass Index 27.8 Chest Other: Chest breath sounds bilaterally, HS 1 in 2 GI Other: Patient was examined both supine and standing with Valsalva. Abdomen soft benign. Status post right inguinal hernia repair well healed. Right groin negative. Genitalia within normal limits. Very large left inguinal hernia. Assessment & Plan Assessment & Plan (1) Inguinal hernia: Code(s): K40.90 - Unilateral inguinal hernia, without obstruction or gangrene, not specified as recurrent Qualifiers: Obstruction and gangrene presence: without obstruction or gangrene Laterality: unilateral Recurrence: non-recurrent Qualified Code(s): K40.90 - Unilateral inguinal hernia, without obstruction or gangrene, not specified as recurrent Plan Risks, benefits, alternatives of open left inguinal hernia repair with mesh was reviewed with the patient and included but not limited to bleeding, infection, recurrence, numbness, pain, scarring the patient wished to proceed. All questions answered. Arrangements were made for this. Patient would like to have this done sooner than later because he is planning a vacation in June. Coding Level of Care Code New Pt Level 5 (88482) Diagnoses Non-recurrent unilateral inguinal hernia without obstruction or gangrene K40.90 Obstruction and gangrene presence: without obstruction or gangrene Laterality: unilateral Recurrence: non-recurrent
== END 2023-05-30 10:53 | disposition home or self-care (01) ==
PROVIDERS: PCP Nurse Practitioner Family; Visit Provider Surgery
DX: K40.90 Unilateral inguinal hernia, without obstruction or gangrene, not specified as recurrent (principal)
CPT/HCPCS: 99204

== ENCOUNTER 2023-06-02 07:58 | Day surgery (SDC) | payer MEDICARE, SELFPAY ==
--- NOTE | 2023-06-01 09:53 | MHC.SHP ---
Pre-Procedural Eval Section A Date of Service: 06/01/23 The patient is an INPATIENT: No Changes since office visit: No Cold of Flu in the past 2 weeks, No New Medical Problems, No Changes in Medication and No Patient answered all questions The History & Physical has been completed within 30 days and I have reviewed it.: Yes Section B Chief Complaint: Unilateral inguinal hernia, without obstruction or Allergies: Allergies Allergy/AdvReac Type Severity Reaction Status Date / Time No Known Allergies Allergy Verified 05/30/23 10:32 Plan I have reviewed the history and physical and performed a pertinent physical examination on my patient. No changes have occurred unless specified. Time Spent With Patient Time: Total time managing care of this patient today ____ minutes.
--- NOTE | 2023-06-01 10:11 | P.CONAN_ITS ---
Documented by User: Katerina Castro NP 06/01/23 10:11 HPI - Anesthesia Eval Consult details Narrative: 73yo M for Open Hernia Inguinal Reducible w/mesh PMFSH Active Problems Active Problems: All Active Problems (Updated 02/18/22 @ 10:05 by Joe Jett, [facility]) Inguinal hernia (Acute) Encounter for annual wellness visit (AWV) in Medicare patient (Acute) Right knee pain (Acute) Impingement syndrome, shoulder, left (Acute) Trapezius muscle spasm (Acute) Thumb pain (Acute) Shoulder pain (Acute) Nicotine dependence, cigarettes, uncomplicated (Acute) Tubular adenoma of colon (Acute) Dyslipidemia (Acute) Smoker (Acute) Screening for malignant neoplasm of colon (Acute) Dizziness (Acute) Screening PSA (prostate specific antigen) (Acute) Physical exam (Acute) Past Medical History Medical History Tubular adenoma of colon Nicotine dependence, cigarettes, uncomplicated Smoker GERD (gastroesophageal reflux disease) Family History Family History Father Parkinsons disease Mother No problems noted. Family history of problems with anesthesia: No Surgical History Surgical History History of appendectomy History of right inguinal hernia repair History of colonoscopy History of Problems with Anesthesia: No 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 (Updated 06/02/23 @ 09:41 by Kristan Fraser MD) Housing: House Alcohol intake: current Alcohol intake frequency: holidays/special occasions only Patient Tobacco Use Status: Current everyday Tobacco user Tobacco use type: Cigarette Cigarettes Per Day: 12 Years Smoked: 1989 e-Cigarette/Vaping Use: Never Used Second Hand Smoke Exposure: No Substance Use Type: Marijuana service: No Current occupational status: retired Cognitive needs: No Hearing needs: No Vision needs: No Meds Allergies Allergy/AdvReac Type Severity Reaction Status Date / Time No Known Allergies Allergy Verified 05/30/23 10:32 Active Medications: Current Medications Cefazolin Sodium/Dextrose (Ancef) 2 gm in 50 mls @ 100 mls/hr IV PREOP ONE Stop: 06/01/23 10:21 Assessment and Plan Assessment Anesthesia Assessment: Chart Reviewed Final Anesthetic Review Family History of Problems with Anesthesia: No History of Problems with Anesthesia: No Documented by User: Kristan Fraser MD 06/02/23 09:43 HPI - Anesthesia Eval Consult details Narrative: 73yo M for Left Reducible Inguinal Hernia Open Repair w/mesh PMFSH Active Problems Active Problems: All Active Problems (Updated 06/02/23 @ 09:10 by Kristan Fraser MD) Inguinal hernia (Acute) Encounter for annual wellness visit (AWV) in Medicare patient (Acute) Right knee pain (Acute) Impingement syndrome, shoulder, left (Acute) Trapezius muscle spasm (Acute) Thumb pain (Acute) Shoulder pain (Acute) Nicotine dependence, cigarettes, uncomplicated (Acute) Tubular adenoma of colon (Acute) Dyslipidemia (Acute) Smoker (Acute) Screening for malignant neoplasm of colon (Acute) Dizziness (Acute) Screening PSA (prostate specific antigen) (Acute) Physical exam (Acute) Past Medical History Medical History Tubular adenoma of colon Nicotine dependence, cigarettes, uncomplicated Smoker GERD (gastroesophageal reflux disease) Family History Family History Father Parkinsons disease Mother No problems noted. Surgical History Surgical History History of appendectomy History of right inguinal hernia repair History of colonoscopy 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 (Updated 06/02/23 @ 09:41 by Kristan Fraser MD) Housing: House Alcohol intake: current Alcohol intake frequency: holidays/special occasions only Patient Tobacco Use Status: Current everyday Tobacco user Tobacco use type: Cigarette Cigarettes Per Day: 12 Years Smoked: 1989 e-Cigarette/Vaping Use: Never Used Second Hand Smoke Exposure: No Substance Use Type: Marijuana service: No Current occupational status: retired Cognitive needs: No Hearing needs: No Vision needs: No Meds Allergies Allergy/AdvReac Type Severity Reaction Status Date / Time No Known Allergies Allergy Verified 05/30/23 10:32 Exam Height,Weight and Vital Signs: Height 5 ft 9 in Weight 83.189 kg Vital Signs Temp Pulse Resp BP Pulse Ox O2 Del Method 06/02/23 09:11 98.5 F 74 16 127/78 98 Room Air Airway Mallampati Class: II TM Dist: >3cm Neck ROM: Full Loose/Missing/Broken Teeth: Yes (Implant intact. Denies broken, loose, missing teeth) Heart: RRR Lungs: CTAB Assessment and Plan Assessment Anesthesia Assessment: Anesthesia Plan Discussed Final Anesthetic Review NPO: Yes ASA Class: II Final Preanesthetic Review: No Changes in Pt Med Stat, Meds/Allgs Chart Reviewed, Consent Obtained/Reviewed and Anes Risks/Benef Reviewed Patient Risk: Low Procedure Risk: Low Assessment/Block/Sedation in SS: Assess/Block/Sedation-SS Anesthetic Plan Anesthetic Plan: GA and MAC: Disposition: Standard PACU
[2023-06-02] VITALS (7 sets, daily range): BP systolic 96–127; BP diastolic 55–78; PULSE 63–74; RESP 16–18; TEMP 36.6–36.9; O2SAT 94–98; BMI 27.1
[2023-06-02] MEDS: Lactated Ringers 1,000 ML 100 ML IVCONT (09:39)
--- NOTE | 2023-06-02 11:13 | W.PM.OPN ---
Operative Note Operative Note Date of Service: 06/02/23 Narrative: Preoperative diagnosis: [] Symptomatic enlarging left inguinal hernia Postop diagnosis: [] Same Procedure [] open repair left inguinal hernia with Bard mesh Surgeon: [] Manuel Plastic Tubing Insulation Supervisor: [] Lilia Type of Anesthesia: [] MAC Indication for surgery: [] Very large indirect left inguinal hernia. No direct hernia demonstrated. Findings: [] Patient brought to the operating room, placed on operative table supine position, after adequate level of MAC anesthesia was induced, the left groin was prepped and draped in usual sterile fashion. Ilioinguinal block with 0.5% Marcaine/1% lidocaine as well as infiltration of the incision was performed. Using a small left jin inguinal incision, this carried down through skin, subcutaneous tissue, Mu's fascia. External oblique fibers were opened direction with care to isolate and preserve the ilioinguinal nerve throughout the procedure. Spermatic cord was identified and retracted from the field. Large indirect hernia sac was from the spermatic cord and reduced. No direct hernia was demonstrated. A Bard plug was placed in the indirect defect, and sutured inferiorly to the inguinal ligament and superiorly to the transversalis fascia using interrupted 0 Ethibond suture. Graft cover the entire inguinal floor and indirect ring admitted 1 fingertip at completion. Wound was irrigated, secured hemostasis, and closed in the following manner; external oblique fascia was closed using running 2-0 Vicryl suture. Mu's fascia was reapproximated using interrupted 3-0 Vicryl sutures. Interrupted inverted deep dermal 3-0 Vicryl sutures followed by running subcuticular 4-0 Vicryl sutures were placed. Steri-Strips and sterile dressings were applied. Sponge, needle, instrument counts reported correct. Patient tolerated the procedure well and emerged anesthesia stable condition. EBL minimal
== END 2023-06-02 12:56 | disposition home or self-care (01) ==
PROVIDERS: PCP Nurse Practitioner Family; Visit Provider Surgery
PROC: (CPT 49505; principal; 2023-06-02 09:50)
DX: K40.90 Unilateral inguinal hernia, without obstruction or gangrene, not specified as recurrent (principal); K21.9 Gastro-esophageal reflux disease without esophagitis; Z98.890 Other specified postprocedural states; F17.210 Nicotine dependence, cigarettes, uncomplicated
CPT/HCPCS: 49505; C1781; J0665; J0690; J1100; J1170; J2250; J2371; J2704

== ENCOUNTER → 2023-06-02 07:58 | Outpatient (BNV) | payer MEDICARE, SELFPAY | PROVIDERS: PCP Nurse Practitioner Family; Visit Provider Surgery | DX: K40.90 Unilateral inguinal hernia, without obstruction or gangrene, not specified as recurrent (principal) | CPT/HCPCS: 49505 ==

== ENCOUNTER 2023-06-13 10:34 | Outpatient (AMB) | payer MEDICARE, SELFPAY ==
[2023-06-13 10:40] VITALS: BP 103/68; PULSE 83
--- NOTE | 2023-06-13 10:40 | A.OFFVIS_ITS ---
Intake Vital Signs 06/13/23 10:40 Weight 184 lb BP 103/68 Blood Pressure Location Rt brachial Position Sitting Pulse 83 Intake Visit Reasons: S/P LIH w/mesh Intake Note: Patient here s/p LIH w/mesh on 06-02-23. Patient reports healing well. Denies bleeding, pain.No longer taking rx pain m eds. Prune juice helped. Residential Living Assistant Required: No Accompanied by: Self / Same As Patient Allergies No Known Allergies Allergy (Verified 06/13/23 10:42) HPI HPI Comments History of Present Illness Details Patient is doing well status post left inguinal hernia repair. He has tolerating a diet. He is having regular bowel habits. He is increasing his activity level. He has no wound issues. [facility] Medical History Tubular adenoma of colon Nicotine dependence, cigarettes, uncomplicated Smoker GERD (gastroesophageal reflux disease) Surgical History History of appendectomy History of right inguinal hernia repair History of colonoscopy Family History Father Parkinsons disease Mother No problems noted. 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 Housing: House Alcohol intake: current Alcohol intake frequency: holidays/special occasions only Patient Tobacco Use Status: Current everyday Tobacco user Tobacco use type: Cigarette Cigarettes Per Day: 12 Years Smoked: 1989 e-Cigarette/Vaping Use: Never Used Second Hand Smoke Exposure: No Substance Use Type: Marijuana service: No Current occupational status: retired Cognitive needs: No Hearing needs: No Vision needs: No Physical Exam Vital Signs: Last Vital Signs Pulse 83 06/13/23 10:40 BP 103/68 06/13/23 10:40 GI Other: Abdomen soft. Wound clean dry and intact healing uneventfully. Assessment & Plan Assessment & Plan (1) Status post hernia repair: Code(s): Z98.890 - Other specified postprocedural states; Z87.19 - Personal history of other diseases of the digestive system Plan Patient has been given local wound instructions. All questions answered. He will follow-up p.r.n.. Coding Level of Care Code Global (82568) Diagnoses Status post hernia repair Z98.890; Z87.19
== END 2023-06-13 10:49 | disposition home or self-care (01) ==
PROVIDERS: PCP Nurse Practitioner Family; Visit Provider Surgery
DX: Z98.890 Other specified postprocedural states (principal); Z87.19 Personal history of other diseases of the digestive system
CPT/HCPCS: 99024

== ENCOUNTER → 2023-06-13 10:34 | Outpatient (BNVA) | payer MEDICARE, SELFPAY | PROVIDERS: PCP Nurse Practitioner Family; Visit Provider Surgery | DX: Z98.890 Other specified postprocedural states (principal); Z87.19 Personal history of other diseases of the digestive system | CPT/HCPCS: 99212 ==

== ENCOUNTER 2023-09-19 14:34 | Outpatient (AMB) | payer MEDICARE, SELFPAY ==
--- NOTE | 2023-09-19 15:29 | MHC.OFFWIV ---
Intake Vital Signs 09/19/23 15:32 Height 5 ft 9 in Weight 182 lb 8 oz BMI 26.9 BP 128/76 Blood Pressure Location Lt brachial Position Sitting Pulse 102 H Pulse Source Pulse Oximeter Temp 97.8 F Temp Source Temporal Artery Scan Pulse Oximetry (%) 98 Oxygen Delivery Method Room Air Intake Visit Reasons: EP pain when sitting [phone] Intake Note: Pt presents to the office today for c/o bump on his buttocks. He states he noticed it about 3 weeks ago. Patient Tobacco Use Status: Current everyday Tobacco user Allergies No Known Allergies Allergy (Verified 09/19/23 15:30) HPI HPI Comments History of Present Illness Details Patient presents to the walk-in today for sick visit Complaining of pain to the buttocks, worse with sitting Believes he has an abscess in the area, has been going on for 3 weeks but more painful over last 4 days Has not noticed any discharge States feels like it is less swollen than it had been Denies fevers, chills, nausea, vomiting, diarrhea, weakness, syncope Reports moving bowels without difficulty Pain is worse with sitting and walking [facility] Medical History Tubular adenoma of colon Nicotine dependence, cigarettes, uncomplicated Smoker GERD (gastroesophageal reflux disease) Surgical History History of appendectomy History of right inguinal hernia repair History of colonoscopy Family History Father Parkinsons disease Mother No problems noted. 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 Housing: House Alcohol intake: current Alcohol intake frequency: holidays/special occasions only Patient Tobacco Use Status: Current everyday Tobacco user Tobacco use type: Cigarette Cigarettes Per Day: 12 Years Smoked: 1989 e-Cigarette/Vaping Use: Never Used Second Hand Smoke Exposure: No Substance Use Type: Marijuana service: No Current occupational status: retired Cognitive needs: No Hearing needs: No Vision needs: No Review of Systems Const All systems reviewed & are unremarkable except as noted in HPI and below Physical Exam Vital Signs: Last Vital Signs Temp 97.8 F 09/19/23 15:32 Pulse 102 H 09/19/23 15:32 BP 128/76 09/19/23 15:32 Pulse Ox 98 09/19/23 15:32 Oxygen Delivery Method Room Air 09/19/23 15:32 BMI result Body Mass Index 26.9 General: awake, alert, oriented. Answers questions appropriately. Fully engaged in examination. Skin: warm, dry, intact. Tender, erythematous area right intergluteal region. No notable mucoid, purulent or bloody drainage. HEENT: Normocephalic. Hearing intact. Cardiac: External chest normal in appearance. Respiratory: No cough, audible wheezing or stridor. Abdomen: without gross distension. MS: No obvious swelling or deformities. Neurological: Oriented to person, place, time and situation. Thought process intact. No gait abnormalities appreciated. Psychiatric: Appropriate mood and affect. Good judgment and insight. Assessment & Plan Assessment & Plan (1) Pilonidal abscess: Code(s): L05.01 - Pilonidal cyst with abscess Plan Bactrim ds, 1 tab twice daily for 7 days. Take with food. Keep the area clean and dry Warm compresses as needed Patient advised on red flag symptoms and when to seek treatment in the emergency room Follow up with PCP return here for any new or worsening symptoms Medications: New sulfamethoxazole-trimethoprim 800-160 mg (Bactrim DS) 1 tab PO BID 14 tabs 0RF Coding Level of Care Code Est Pt Level 3 (69519) Diagnoses Pilonidal abscess L05.01
[2023-09-19 15:32] VITALS: BP 128/76; PULSE 102; TEMP 36.6; O2SAT 98; BMI 26.9
== END 2023-09-19 16:17 | disposition home or self-care (01) ==
PROVIDERS: PCP Nurse Practitioner Family; Visit Provider Registered Nurse Emergency
DX: L05.01 Pilonidal cyst with abscess (principal)
CPT/HCPCS: 99213

== ENCOUNTER 2024-02-14 13:37 | Outpatient (AMB) | payer MEDICARE, SELFPAY ==
[2024-02-14 14:04] VITALS: BP 108/74; PULSE 79; TEMP 36.6; O2SAT 98; BMI 26.0
--- NOTE | 2024-02-14 14:04 | MHC.OFFWIV ---
Intake Vital Signs 02/14/24 14:04 Height 5 ft 9 in Weight 176 lb BMI 26.0 BP 108/74 Blood Pressure Location Lt brachial Position Sitting Pulse 79 Pulse Source Pulse Oximeter Temp 97.9 F Temp Source Oral Pulse Oximetry (%) 98 Oxygen Delivery Method Room Air Intake Visit Reasons: EP Painful boil on his back Intake Note: pt c/o painful boil on back. Ongoing x 1 week Patient Tobacco Use Status: Current everyday Tobacco user Allergies No Known Allergies Allergy (Verified 02/14/24 14:43) Medication List - Last Reconciled 02/14/24 by Wicho Santos MD meloxicam 15 mg PO DAILY sulfamethoxazole-trimethoprim 800-160 mg (Bactrim DS) 1 tab PO BID Do you need a note to return to daycare/school/sports/work: No HPI EP Painful boil on his back HPI Details 74-year-old male presents to the office for a sick visit. Patient is reporting redness and painful swelling on the back. Symptoms started a few days ago. No discharge. l [facility] Medical History Tubular adenoma of colon Nicotine dependence, cigarettes, uncomplicated Smoker GERD (gastroesophageal reflux disease) Surgical History History of appendectomy History of right inguinal hernia repair History of colonoscopy Family History Father Parkinsons disease Mother No problems noted. 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 Housing: House Alcohol intake: current Alcohol intake frequency: holidays/special occasions only Patient Tobacco Use Status: Current everyday Tobacco user Tobacco use type: Cigarette Cigarettes Per Day: 12 Years Smoked: 1989 e-Cigarette/Vaping Use: Never Used Second Hand Smoke Exposure: No Substance Use Type: Marijuana service: No Current occupational status: retired Cognitive needs: No Hearing needs: No Vision needs: No Physical Exam Vital Signs: Last Vital Signs Temp 97.9 F 02/14/24 14:04 Pulse 79 02/14/24 14:04 BP 108/74 02/14/24 14:04 Pulse Ox 98 02/14/24 14:04 Oxygen Delivery Method Room Air 02/14/24 14:04 BMI result Body Mass Index 26.0 Back/Spine/Pelvis Other: 4 cm swelling, tender to touch. Nonfluctuant. Small dark punctum. Assessment & Plan Assessment & Plan (1) Cellulitis of back: Code(s): L03.312 - Cellulitis of back [any part except buttock] Plan: Bactrim and meloxicam called in. If symptoms do not improve to follow-up here. Medications: New meloxicam 15 mg PO DAILY 14 tabs 0RF Refilled sulfamethoxazole-trimethoprim 800-160 mg (Bactrim DS) 1 tab PO BID 14 tabs 0RF Coding Level of Care Code Est Pt Level 3 (51396) Diagnoses Cellulitis of back L03.312
== END 2024-02-14 15:48 | disposition home or self-care (01) ==
LOC: HO.HMCWIC 13:37
PROVIDERS: PCP Nurse Practitioner Family
DX: L03.312 Cellulitis of back [any part except buttock and flank] (principal)

== ENCOUNTER → 2024-02-14 13:37 | Outpatient (BNVA) | payer MEDICARE, SELFPAY | PROVIDERS: PCP Nurse Practitioner Family | DX: L03.312 Cellulitis of back [any part except buttock and flank] (principal) | CPT/HCPCS: 99212 ==

== ENCOUNTER 2024-02-17 07:59 | Outpatient (AMB) | payer MEDICARE, SELFPAY ==
[2024-02-17 08:06] VITALS: BP 132/80; PULSE 79; O2SAT 97; BMI 25.8
--- NOTE | 2024-02-17 08:06 | AM.OFFWIN_ITS ---
Intake Vital Signs 02/17/24 08:06 Height 5 ft 9 in Weight 175 lb BMI 25.8 BP 132/80 Blood Pressure Location Rt brachial Position Sitting Pulse 79 Pulse Source Pulse Oximeter Pulse Oximetry (%) 97 Oxygen Delivery Method Room Air Intake Visit Reasons: EP boil on back Intake Note: pt is here for a boil on his back. Patient Tobacco Use Status: Current everyday Tobacco user Allergies No Known Allergies Allergy (Verified 02/17/24 08:12) Medication List - Last Reconciled 02/17/24 by Denzel Key MD meloxicam 15 mg PO DAILY sulfamethoxazole-trimethoprim 800-160 mg (Bactrim DS) 1 tab PO BID Do you need a note to return to daycare/school/sports/work: No HPI EP boil on back HPI Details Patient came in today for re-evaluation He was seen couple of days ago for this problem in walk-in clinic and was given script for Bactrim And meloxicam Patient says that medication did not help him much He continued to have the pain swelling Review system revealed no fever no chills No nausea no vomiting no abdominal pain [facility] Medical History Tubular adenoma of colon Nicotine dependence, cigarettes, uncomplicated Smoker GERD (gastroesophageal reflux disease) Surgical History History of appendectomy History of right inguinal hernia repair History of colonoscopy Family History Father Parkinsons disease Mother No problems noted. 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 Housing: House Alcohol intake: current Alcohol intake frequency: holidays/special occasions only Patient Tobacco Use Status: Current everyday Tobacco user Tobacco use type: Cigarette Cigarettes Per Day: 12 Years Smoked: 1989 e-Cigarette/Vaping Use: Never Used Second Hand Smoke Exposure: No Substance Use Type: Marijuana service: No Current occupational status: retired Cognitive needs: No Hearing needs: No Vision needs: No Review of Systems Const All systems reviewed & are unremarkable except as noted in HPI and below Physical Exam Vital Signs: Last Vital Signs Pulse 79 02/17/24 08:06 BP 132/80 02/17/24 08:06 Pulse Ox 97 02/17/24 08:06 Oxygen Delivery Method Room Air 02/17/24 08:06 BMI result Body Mass Index 25.8 Const General: no acute distress Orientation/consciousness: patient oriented x3 Eyes General: appearance normal, both eyes and all related structures Resp Effort & Inspection: normal respiratory effort and able to speak in complete sentences Back/Spine/Pelvis Other: About 3 cm area of redness noticed in the back without any fluctuation or pus formation Neuro General: patient oriented x3 Psych Mental Status: mental status grossly normal Assessment & Plan Assessment & Plan (1) Cellulitis: Code(s): L03.90 - Cellulitis, unspecified Plan Patient came in today for re-evaluation He was seen couple of days ago for this problem in walk-in clinic and was given script for Bactrim And meloxicam Patient says that medication did not help him much He continued to have the pain swelling Review system revealed no fever no chills No nausea no vomiting no abdominal pain Medications: New doxycycline hyclate 100 mg PO BID 20 caps 0RF Coding Level of Care Code Est Pt Level 3 (56156) Diagnoses Cellulitis L03.90
== END 2024-02-17 09:03 | disposition home or self-care (01) ==
PROVIDERS: PCP Nurse Practitioner Family; Visit Provider Internal Medicine
DX: L03.90 Cellulitis, unspecified (principal)

== ENCOUNTER → 2024-02-17 07:59 | Outpatient (BNVA) | payer MEDICARE, SELFPAY | PROVIDERS: PCP Nurse Practitioner Family | DX: L03.90 Cellulitis, unspecified (principal) | CPT/HCPCS: 99212 ==

== ENCOUNTER 2024-02-29 09:47 | Outpatient (AMB) | payer MEDICARE, SELFPAY ==
--- NOTE | 2024-02-29 09:48 | A.OFFPC_ITS ---
Vital Signs 3 02/29/24 09:54 Height 5 ft 9 in Weight 171 lb 6 oz BMI 25.3 BP 122/78 Blood Pressure Location Rt brachial Position Sitting Pulse 73 Pulse Source Pulse Oximeter Pulse Oximetry (%) 96 Oxygen Delivery Method Room Air Intake Visit Reasons: Establishing-PER rosa Lopez Allergies No Known Allergies Allergy (Verified 02/29/24 09:48) Medication List - Last Reconciled 02/29/24 by Denzel Key MD No Known Home Meds Tobacco use date assessed: 02/29/24 Fall risk assessment: No Falls in past year Last assessed Fall Risk: 02/29/24 Dental Screening Dental Screen Date: 02/29/24 Did you have a dental visit in the last 12 months?: Yes Did you have a dental problem in the last 6 months where you did not have access to dental care?: No Was dental information given to patient?: Patient has dentist HPI Establishing-PER rosa Lopez 2 HPI0 Details Patient is 74-year-old gentleman came in today for establish care visit He is ex-smoker, tells me that he had a lung cancer screening done And he is due for it, last screening was 3 years ago He also have a chronically inflamed cyst on his back left side Which flares up every now and then and then he has to take antibiotics I am booking appointment with the surgery so they can address this problem He is also due for colonoscopy, referral placed Lab order placed to be done fasting Patient is taking no medications and has no medical problems His vital signs are stable and his weight is stable 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 Housing: House Alcohol intake: current Alcohol intake frequency: holidays/special occasions only Patient Tobacco Use Status: Current everyday Tobacco user Tobacco use type: Cigarette Cigarettes Per Day: 12 Years Smoked: 1989 e-Cigarette/Vaping Use: Never Used Second Hand Smoke Exposure: No Substance Use Type: Marijuana service: No Current occupational status: retired Cognitive needs: No Hearing needs: No Vision needs: No Questionnaire PHQ-9 Over the last 2 weeks, how often have you been bothered by any of the following problems? 1. Little interest or pleasure in doing things: not at all 2. Feeling down, depressed, or hopeless: not at all 3. Trouble falling or staying asleep, or sleeping too much: not at all 4. Feeling tired or having little energy: not at all 5. Poor appetite or overeating: not at all 6. Feeling bad about yourself - or that you are a failure or have let yourself or your family down: not at all 7. Trouble concentrating on things, such as reading the newspaper or watching television: not at all 8. Moving or speaking so slowly that other people could have noticed. Or the opposite - being so fidgety or restless that you have been moving around a lot more than usual: not at all 9. Thoughts that you would be better off or of hurting yourself in some way: not at all Total score: 0 Depression Screening Interpretation: Negative Depression Screening Done: Yes 56229 - PHQ-9 Billing: Yes Source: Developed by Drs. Fernando Moncada, Ami Ram, Elan Dominguez and colleagues, with an educational nicki from [employer]. Thrive Questionnaire Date Thrive assessed: 02/29/24 I am a: Patient What is your living situation today?: I have a steady place to live Within the past 12 months, did the food you bought not last and you didn't have the money to get more?: Never true Within the past 12 months, did you worry whether your food would run out before you got money to buy more?: Never true Do you have trouble paying for medicines?: No Do you have trouble getting transportation to medical appointments?: No Do you have trouble paying your heating and electricity bill?: No Do you have trouble taking care of your child, family member or friend?: No Do you have trouble with day-to-day activities such as bathing, preparing meals, shopping, managing finances, etc.?: No Are you currently unemployed and looking for a job?: No Are you interested in more education?: No Please select the resources that you would like help with: None Currently or been in a relationship where the following occur: No concerns reported THRIVE Score: 0 AUDIT C Alcohol Use Questionnaire (AUDIT-C) 1. How often do you have a drink containing alcohol?: 2-4 times a month 2. How many drinks containing alcohol do you have on a typical day when you are drinking?: 1 or 2 3. How often do you have six or more drinks on one occasion?: Never Total Score: 2 Score Reviewed/Action Taken: Yes LEILA-7 AMB Questionnaire LEILA-7 Date LEILA - 7 assessed: 02/29/24 Feeling nervous, anxious, or on edge: 0 = Not at all Not being able to stop or control worryin = Not at all Worrying too much about different things: 0 = Not at all Trouble relaxin = Not at all Being so restless that it is hard to sit still: 0 = Not at all Becoming easily annoyed or irritable: 0 = Not at all Feeling afraid as if something awful might happen: 0 = Not at all Total LEILA-7 score (0-4 normal; 5-9 mild; 10-14 moderate; 15-21 severe): 0 Source: Developed by Drs. Fernando Moncada, Ami Ram, Elan Dominguez and colleagues, with an educational nicki from [employer]. LEILA-7 Assessment Billing LEILA-7 Assessment Tool: LEILA-7 Assessment 63057 Review of Systems Const Denies chills, Denies fever(s) and Denies headache(s) Eyes Denies blurry vision ENT Denies headache(s), Denies nasal discharge, Denies nasal obstruction, Denies odynophagia and Denies sinus pain Card Denies chest pain at rest and Denies chest pain with activity Resp Denies cough and Denies hemoptysis GI Denies diarrhea, Denies odynophagia, Denies vomiting and Denies hematemesis Reports as per HPI Musc Denies abnormal gait Skin/Breast Reports as per HPI Neuro Denies Neuro-related abnormal movements, Denies Abnormal speech present, Denies abnormal gait, Denies headache(s) and Denies Sensory deficit (Neuro) Psych Denies mood swings and Denies paranoia Endo Reports as per HPI [place]/Lymph Reports as per HPI Aller/Immun Reports as per HPI Physical exam (Primary Care) Vital Signs: Last Vital Signs Pulse 73 02/29/24 09:54 BP 122/78 02/29/24 09:54 Pulse Ox 96 02/29/24 09:54 Oxygen Delivery Method Room Air 02/29/24 09:54 BMI result Body Mass Index 25.3 Tobacco/Smoking Status: Tobacco use Status Tobacco use date assessed 02/29/24 02/29/24 09:58 Patient Tobacco Use Status Current everyday Tobacco 02/29/24 09:58 Tobacco use type Cigarette 02/29/24 09:58 e-Cigarette/Vaping Use Never Used 02/29/24 09:58 PHQ-9: PHQ-9 Score PHQ-9: Total score 0 02/29/24 10:27 Depression Screening Interpretation: Negative Thrive Assessment: Date of Thrive Assessment Date Thrive assessed 02/29/24 02/29/24 09:58 Currently or been in a relationship where the following occur: No concerns reported Const General: cooperative, comfortable and no acute distress Orientation/consciousness: patient oriented x3 HENMT Head: Yes normocephalic and Yes atraumatic Eyes General: appearance normal, both eyes and all related structures Pupils: Equal, round and reactive pupils present EOM: EOMs intact bilaterally Neck Neck: Yes supple and No lymphadenopathy Thyroid: Thyroid normal Lymphatic: no lymphadenopathy noted Resp Effort & Inspection: normal respiratory effort and able to speak in complete sentences Auscultation: clear to auscultation bilaterally Cardio Heart sounds: S1 normal heart sound present and S2 normal heart sound present GI Palpation (GI): Soft to palpation and nontender Auscultation: normal bowel sounds General: Yes no CVA tenderness Back/Spine/Pelvis Back: no CVA tenderness Back/spine/pelvis image: 2 1. Erythematous area with induration Skin General skin exam: elasticity normal and turgor normal Neuro General: patient oriented x3 and gait normal Cranial nerves: Yes Equal, round and reactive pupils present Speech: No Abnormal speech present Sensory Exam: No Sensory deficit (Neuro) Coordination: tandem gait normal and Romberg test negative Extrem General: Yes normal exam except as noted and No edema Coding Level of Care Code New Pt Level 5 (68153) Diagnoses Establishing care with new doctor, encounter for Z76.89 Inflamed epidermoid cyst of skin L72.3 Ex-smoker Z87.891 Screening for malignant neoplasm of colon Z12.11 Dyslipidemia E78.5 Tubular adenoma of colon D12.6 Abscess L02.91 Additional Codes LEILA-7 Assessment Billing - LEILA-7 Assessment Tool: LEILA-7 Assessment 36252 ([id number]) Assessment & Plan Assessment & Plan (1) Establishing care with new doctor, encounter for: Code(s): Z76.89 - Persons encountering health services in other specified circumstances Category: Medical (2) Inflamed epidermoid cyst of skin: Code(s): L72.3 - Sebaceous cyst Category: Medical (3) Ex-smoker: Code(s): Z87.891 - Personal history of nicotine dependence Category: Social Hx (4) Screening for malignant neoplasm of colon: Code(s): Z12.11 - Encounter for screening for malignant neoplasm of colon Category: Medical (5) Dyslipidemia: Code(s): E78.5 - Hyperlipidemia, unspecified Category: Medical (6) Tubular adenoma of colon: Comment: (TAs in 2003, HPs in 2009) Code(s): D12.6 - Benign neoplasm of colon, unspecified Category: Medical (7) Abscess: Code(s): L02.91 - Cutaneous abscess, unspecified Category: Medical Plan Patient is 74-year-old gentleman came in today for establish care visit He is ex-smoker, tells me that he had a lung cancer screening done And he is due for it, last screening was 3 years ago He also have a chronically inflamed cyst on his back left side Which flares up every now and then and then he has to take antibiotics I am booking appointment with the surgery so they can address this problem He just got finished with antibiotic yesterday He is also due for colonoscopy, referral placed History of tubular adenoma Lab order placed to be done fasting Patient is taking no medications and has no medical problems His vital signs are stable and his weight is stable Due for Tdap and Prevnar vaccine, patient will get it from pharmacy He is also due for flu vaccine senior does Patient has worked in a [employer] all his life and has been very active 60 minutes spent in care of this patient Orders: Orders 2 Lipid Panel Today E78.5 - Hyperlipidemia, unspecified, L72.3 - Sebaceous cyst, Z76.89 - Persons encountering health services in other specified circumstances, Z87.891 - Personal history of nicotine dependence TSH reflex Free T4 Today E78.5 - Hyperlipidemia, unspecified, L72.3 - Sebaceous cyst, Z76.89 - Persons encountering health services in other specified circumstances, Z87.891 - Personal history of nicotine dependence Vitamin D 25-OH (D2 and D3) Today E78.5 - Hyperlipidemia, unspecified, L72.3 - Sebaceous cyst, Z76.89 - Persons encountering health services in other specified circumstances, Z87.891 - Personal history of nicotine dependence CT lung screening Today Z87.891 - Personal history of nicotine dependence Complete Blood Count Auto Diff Today E78.5 - Hyperlipidemia, unspecified, L72.3 - Sebaceous cyst, Z76.89 - Persons encountering health services in other specified circumstances, Z87.891 - Personal history of nicotine dependence Comprehensive [place]. Panel Fast Today E78.5 - Hyperlipidemia, unspecified, L72.3 - Sebaceous cyst, Z76.89 - Persons encountering health services in other specified circumstances, Z87.891 - Personal history of nicotine dependence Referrals 2 General Surgery Referral L02.91 - Cutaneous abscess, unspecified, L72.3 - Sebaceous cyst Open Access Screening Colonoscopy Referral Z12.11 - Encounter for screening for malignant neoplasm of colon, Z12.12 - Encounter for screening for malignant neoplasm of rectum
[2024-02-29 09:54] VITALS: BP 122/78; PULSE 73; O2SAT 96; BMI 25.3
== END 2024-02-29 10:29 | disposition home or self-care (01) ==
PROVIDERS: PCP Nurse Practitioner Family; Visit Provider Internal Medicine
DX: E78.5 Hyperlipidemia, unspecified (principal); Z76.89 Persons encountering health services in other specified circumstances; L72.3 Sebaceous cyst; Z87.891 Personal history of nicotine dependence; Z12.11 Encounter for screening for malignant neoplasm of colon; D12.6 Benign neoplasm of colon, unspecified; L02.91 Cutaneous abscess, unspecified

== ENCOUNTER → 2024-02-29 09:47 | Outpatient (BNVA) | payer MEDICARE, SELFPAY | PROVIDERS: PCP Nurse Practitioner Family; Visit Provider Internal Medicine | DX: L72.3 Sebaceous cyst (principal); E78.5 Hyperlipidemia, unspecified; D12.6 Benign neoplasm of colon, unspecified; L02.91 Cutaneous abscess, unspecified; Z87.891 Personal history of nicotine dependence; Z76.89 Persons encountering health services in other specified circumstances | CPT/HCPCS: 96127; 99212 ==

== ENCOUNTER 2024-03-02 09:26 | Outpatient (AMB) | payer MEDICARE, SELFPAY ==
--- NOTE | 2024-03-02 09:27 | A.OFFVIS_ITS ---
Vital Signs 03/02/24 09:35 Height 5 ft 9 in Weight 178 lb BMI 26.3 BP 128/72 Blood Pressure Location Lt brachial Position Sitting Pulse 72 Intake Visit Reasons: Mass~ Lt back Intake Note: Patient new consult for LT back mass Patient denies any pain Post Commander Required: No Accompanied by: Self / Same As Patient Allergies No Known Allergies Allergy (Verified 03/02/24 09:33) Medication List - Last Reconciled 03/02/24 by Thiago Jackson MD doxycycline hyclate 100 mg PO BID HPI Comments Details: Patient whom I know from the past who presents here with a right lower back infected sebaceous cyst/abscess. Been going on for several weeks time. He has been given several courses of antibiotics with minimal improvement. Because of persistence of pain he presents here for further evaluation. Chart was reviewed and patient evaluate [facility] Medical History Tubular adenoma of colon Nicotine dependence, cigarettes, uncomplicated Smoker GERD (gastroesophageal reflux disease) Surgical History History of appendectomy History of right inguinal hernia repair History of colonoscopy Family History Father Parkinsons disease Mother No problems noted. 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 Housing: House Alcohol intake: current Alcohol intake frequency: holidays/special occasions only Patient Tobacco Use Status: Current everyday Tobacco user Tobacco use type: Cigarette Cigarettes Per Day: 12 Years Smoked: 1989 e-Cigarette/Vaping Use: Never Used Second Hand Smoke Exposure: No Substance Use Type: Marijuana service: No Current occupational status: retired Cognitive needs: No Hearing needs: No Vision needs: No Physical Exam Vital Signs: Last Vital Signs Pulse 72 03/02/24 09:35 BP 128/72 03/02/24 09:35 BMI result Body Mass Index 26.3 Back/Spine/Pelvis Other: Patient has a large roughly 4 x 3 cm right lower back abscess consistent with an infected sebaceous cyst. Office Procedures I&D Drain Details: Risks, benefits, alternatives of incision and drainage of complex right lower back infected sebaceous cyst/abscess were reviewed with the patient and included but not limited to bleeding, infection, recurrence, numbness, pain, scarring the patient wished to proceed. All questions answered. Consent signed. Of the Thera appropriate positioning, patient underwent 1% lidocaine and Betadine prep and a transverse incision was made over the abscess were copious amounts of purulent material were drained and loculations broken up. Wound was irrigated, secured hemostasis, packed, and sterile dressing applied. Patient tolerated procedure well. [id number] of Skin Abscess, complex All charges added?: Procedure code (CPT) selection complete Assessment & Plan Assessment & Plan (1) Abscess: Code(s): L02.91 - Cutaneous abscess, unspecified Category: Surgical Plan: Patient was complete his antibiotics, he was beginning to script for analgesics, we will arrange for VNA services, and he will see me as directed or p.r.n.. All questions answered. Orders: Orders AMB Incision & Drainage Today L02.91 - Cutaneous abscess, unspecified Medications: New hydrocodone-acetaminophen 5-325 mg Partial Fill upon patient request. 1 tab PO Q4-6H PRN 30 tabs 0RF pain Coding Level of Care Code New Pt Level 5 (13947) Diagnoses Abscess L02.91 CPT Codes I&D Drain - Drain 2: [id number]-[id number] of Skin Abscess, complex ([id number])
[2024-03-02 09:35] VITALS: BP 128/72; PULSE 72; BMI 26.3
== END 2024-03-02 10:06 | disposition home or self-care (01) ==
PROVIDERS: PCP Internal Medicine; Referring Provider Internal Medicine; Visit Provider Surgery
DX: L02.212 Cutaneous abscess of back [any part, except buttock and flank] (principal)
CPT/HCPCS: 10061; 99214

== ENCOUNTER → 2024-03-02 09:26 | Outpatient (BNVA) | payer MEDICARE, SELFPAY | PROVIDERS: PCP Internal Medicine; Referring Provider Internal Medicine; Visit Provider Surgery | DX: L02.91 Cutaneous abscess, unspecified (principal) | CPT/HCPCS: 10061; 99212 ==

== ENCOUNTER 2024-03-13 09:29 | Outpatient (AMB) | payer MEDICARE, SELFPAY ==
--- NOTE | 2024-03-13 09:33 | MHC.OFFVIS ---
Intake Visit Reasons: s/p excision Mass~ Lt back Intake Note: Patient here s/p abscess on right lower back I&D. VNA services every other day. Patient c/o: improvement with doxycycline. Supervisor Sawmill Required: No Accompanied by: Self / Same As Patient Allergies No Known Allergies Allergy (Verified 03/13/24 09:34) HPI Comments Details: Status post I&D right lower back abscess. Patient is doing well. He is undergoing VNA services. He has no wound issues or complaints. He is completing his antibiotic course. [facility] Medical History Tubular adenoma of colon Nicotine dependence, cigarettes, uncomplicated Smoker GERD (gastroesophageal reflux disease) Surgical History History of appendectomy History of right inguinal hernia repair History of colonoscopy Family History Father Parkinsons disease Mother No problems noted. 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 Housing: House Alcohol intake: current Alcohol intake frequency: holidays/special occasions only Patient Tobacco Use Status: Current everyday Tobacco user Tobacco use type: Cigarette Cigarettes Per Day: 12 Years Smoked: 1989 e-Cigarette/Vaping Use: Never Used Second Hand Smoke Exposure: No Substance Use Type: Marijuana service: No Current occupational status: retired Cognitive needs: No Hearing needs: No Vision needs: No Physical Exam Back/Spine/Pelvis Other: Wound is healing very well. Infectious process has resolved. Granulating wound. Assessment & Plan Assessment & Plan (1) Status post incision and drainage: Code(s): Z98.890 - Other specified postprocedural states Category: Medical Plan Patient can DC packing and just apply dry sterile dressing each day after showering. He will see me in few weeks time and consideration for formal excision of this infected sebaceous cyst will be considered. All questions answered. Coding Level of Care Code Global (39347) Diagnoses Status post incision and drainage Z98.890
== END 2024-03-13 09:44 | disposition home or self-care (01) ==
PROVIDERS: PCP Internal Medicine; Visit Provider Surgery
DX: Z98.890 Other specified postprocedural states (principal)
CPT/HCPCS: 99024

== ENCOUNTER → 2024-03-13 09:29 | Outpatient (BNVA) | payer MEDICARE, SELFPAY | PROVIDERS: PCP Internal Medicine; Visit Provider Surgery | DX: L02.212 Cutaneous abscess of back [any part, except buttock and flank] (principal); Z98.890 Other specified postprocedural states | CPT/HCPCS: 99212 ==

== ENCOUNTER 2024-03-15 11:47 | Outpatient (REF) | payer MEDICARE, SELFPAY ==
[2024-03-15 13:25] LABS: MANUAL DIFF FLAG NO
[2024-03-15 14:01] LABS: Basophils Absolute Auto 0.1 X10*3/uL (0.0-0.2); Basophils Percent Auto 1.4 % (0-2); Eosinophils Absolute Auto 0.2 X10*3/uL (0.0-0.4); Eosinophils Percent Auto 3.5 % (0-4); Hematocrit 43.8 % (42.0-52.0); Hemoglobin 14.5 g/dl (14.0-18.0); Imm Gran Abs Auto 0.01 X10*3/uL (0.00-0.03); Imm Gran Pct Auto 0.2 % (0.0-0.4); Lymphocytes Absolute Auto 1.7 X10*3/uL (1.2-4.9); Lymphocytes Percent Auto 27.1 % (20-40); Mean Corpuscular HGB Conc 33.1 g/dl (31.0-36.0); Mean Corpuscular Hemoglobin 31.7 pg (27.0-33.0); Mean Corpuscular Volume 95.6 fL (80.0-98.0); Mean Platelet Volume 10.8 fL (9.4-12.4); Monocytes Absolute Auto 0.6 X10*3/uL (0.1-1.2); Neutrophils Absolute Auto 3.6 x10*3/uL (2.0-8.3); Neutrophils Percent Auto 57.8 % (45-73); Platelet Count 195 X10*3/uL (160-400); Red Blood Count 4.58 X10*6/uL (4.60-5.80); Red Cell Distribution Width 14.2 % (11.0-16.0); White Blood Count 6.3 X10*3/uL (4.8-10.8)
[2024-03-15 14:16] LABS: Alanine Aminotransferase 18 U/L (0-40); Alkaline Phosphatase 39 U/L (39-117); Anion Gap 10 (12-20); Aspartate Amino Transferase 19 U/L (5-37); Bilirubin Total 0.3 mg/dL (0.0-1.0); Blood Urea Nitrogen 16 mg/dL (9-16); Calcium 9.1 mg/dL (8.4-10.2); Carbon Dioxide 27 mmol/L (22-29); Chloride 107 mmol/L (96-108); Cholesterol 198 mg/dL (<200); Estimated Glomerular Filt Rate > 60; Glucose Fasting 98 mg/dL (60-99); HDL Cholesterol 70 mg/dL (>40); LDL Cholesterol Calculated 118 mg/dL (<100); Potassium 4.2 mmol/L (3.3-5.1); Sodium 140 mmol/L (135-145); Total Protein 6.6 g/dL (6.5-8.0); Triglycerides 50 mg/dL (<150)
[2024-03-19 16:09] LABS: Vitamin D 25-OH, D2 6 ng/mL; Vitamin D 25-OH, D3 23 ng/mL; Vitamin D 25-OH, Total 29 ng/mL (30-100)
== END 2024-03-15 11:48 | disposition home or self-care (01) ==
LOC: HO.HMGCLDS 11:47
PROVIDERS: PCP Internal Medicine; Visit Provider Internal Medicine
DX: Z76.89 Persons encountering health services in other specified circumstances (principal); Z87.891 Personal history of nicotine dependence; L72.3 Sebaceous cyst; E78.5 Hyperlipidemia, unspecified
CPT/HCPCS: 36415; 80053; 80061; 82306; 84443; 85025

== ENCOUNTER 2024-03-23 10:29 | Outpatient (AMB) | payer MEDICARE, SELFPAY ==
[2024-03-23 10:37] VITALS: BP 122/76; PULSE 78; O2SAT 98; BMI 26.6
--- NOTE | 2024-03-23 10:37 | MHC.PC.OV ---
Vital Signs 03/23/24 10:37 Height 5 ft 9 in Weight 180 lb BMI 26.6 BP 122/76 Blood Pressure Location Rt brachial Position Sitting Pulse 78 Pulse Source Pulse Oximeter Pulse Oximetry (%) 98 Oxygen Delivery Method Room Air Intake Visit Reasons: F/U from appt with surgeon Allergies No Known Allergies Allergy (Verified 03/23/24 10:39) Medication List - Last Reconciled 03/23/24 by Denzel Key MD No Known Home Meds Tobacco use date assessed: 03/23/24 Fall risk assessment: No Falls in past year Last assessed Fall Risk: 03/23/24 Dental Screening Dental Screen Date: 03/23/24 Did you have a dental visit in the last 12 months?: Yes Did you have a dental problem in the last 6 months where you did not have access to dental care?: No Was dental information given to patient?: Patient has dentist HPI F/U from appt with surgeon HPI Details Patient had right lower back abscess/cyst I and D performed of this month at surgery office by Dr. Anthony Visiting nursing visits were started for wound care, wound is doing well Came in today for follow-up appointment, patient is doing well as well taking his medications prescribed by surgeon Post procedure patient was placed on doxycycline and hydrocodone acetaminophen for pain every 4 hours 30 tablets were given Patient has appointment with the surgeon as a follow-up next week He wanted to go over his labs which were done recently Hemoglobin is within normal limit Kidney functions intact Liver functions intact TSH within normal limit Lipids in reasonable range High HDL level Vitamin-D was 29, for that I have sent supplement patient is to start taking that 1 daily Vital signs stable [facility] Medical History Personal history of nicotine dependence Tubular adenoma of colon GERD (gastroesophageal reflux disease) Surgical History History of appendectomy History of right inguinal hernia repair History of colonoscopy Family History Father Parkinsons disease Mother No problems noted. 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 Housing: House Alcohol intake: current Alcohol intake frequency: holidays/special occasions only Patient Tobacco Use Status: Current everyday Tobacco user Tobacco use type: Cigarette Cigarettes Per Day: 12 Years Smoked: 1989 Packs per year/per ci,194.00 e-Cigarette/Vaping Use: Never Used Second Hand Smoke Exposure: No Substance Use Type: Marijuana service: No Current occupational status: retired Cognitive needs: No Hearing needs: No Vision needs: No Questionnaire Thrive Questionnaire Date Thrive assessed: 03/23/24 I am a: Patient What is your living situation today?: I have a steady place to live Within the past 12 months, did the food you bought not last and you didn't have the money to get more?: Never true Within the past 12 months, did you worry whether your food would run out before you got money to buy more?: Never true Do you have trouble paying for medicines?: No Do you have trouble getting transportation to medical appointments?: No Do you have trouble paying your heating and electricity bill?: No Do you have trouble taking care of your child, family member or friend?: No Do you have trouble with day-to-day activities such as bathing, preparing meals, shopping, managing finances, etc.?: No Are you currently unemployed and looking for a job?: No Are you interested in more education?: No Please select the resources that you would like help with: None Currently or been in a relationship where the following occur: No concerns reported THRIVE Score: 0 AUDIT C Alcohol Use Questionnaire (AUDIT-C) 1. How often do you have a drink containing alcohol?: 2-4 times a month 2. How many drinks containing alcohol do you have on a typical day when you are drinking?: 1 or 2 3. How often do you have six or more drinks on one occasion?: Never Total Score: 2 Score Reviewed/Action Taken: Yes LEILA-7 AMB Questionnaire LELIA-7 Date LEILA - 7 assessed: 02/29/24 Source: Developed by Drs. Fernando Moncada, Ami Ram, Elan Dominguez and colleagues, with an educational nicki from [employer]. Review of Systems Const Denies chills and Denies fever(s) ENT Denies epistaxis and Denies nasal discharge Card Denies chest pain Resp Denies chest congestion, Denies cough and Denies hemoptysis GI Denies diarrhea and Denies nausea Skin/Breast Denies rash Neuro Reports no additional complaints Psych Reports no additional complaints Endo Reports no additional complaints Physical exam (Primary Care) Vital Signs: Last Vital Signs Pulse 78 03/23/24 10:37 BP 122/76 03/23/24 10:37 Pulse Ox 98 03/23/24 10:37 Oxygen Delivery Method Room Air 03/23/24 10:37 BMI result Body Mass Index 26.6 Tobacco/Smoking Status: Tobacco use Status Tobacco use date assessed 03/23/24 03/23/24 10:39 Patient Tobacco Use Status Current everyday Tobacco 03/23/24 10:39 Tobacco use type Cigarette 03/23/24 10:39 e-Cigarette/Vaping Use Never Used 03/23/24 10:39 Thrive Assessment: Date of Thrive Assessment Date Thrive assessed 03/23/24 03/23/24 10:39 Currently or been in a relationship where the following occur: No concerns reported Const General: cooperative, comfortable and no acute distress Orientation/consciousness: patient oriented x3 HENMT Head: Yes normocephalic Eyes General: appearance normal, both eyes and all related structures Neck Neck: Yes supple Resp Effort & Inspection: normal respiratory effort, no cough and no stridor Skin General skin exam: turgor normal Neuro General: patient oriented x3, tone normal and moves all extremities Extrem Right lower extremity: no edema Left lower extremity: no edema Coding Level of Care Code Est Pt Level 3 (81346) Diagnoses Vitamin D deficiency E55.9 Assessment & Plan Assessment & Plan (1) Vitamin D deficiency: Code(s): E55.9 - Vitamin D deficiency, unspecified Category: Medical Plan Patient had right lower back abscess/cyst I and D performed of this month at surgery office by Dr. Anthony Visiting nursing visits were started for wound care, wound is doing well Came in today for follow-up appointment, patient is doing well as well taking his medications prescribed by surgeon Post procedure patient was placed on doxycycline and hydrocodone acetaminophen for pain every 4 hours 30 tablets were given Patient has appointment with the surgeon as a follow-up next week He wanted to go over his labs which were done recently Hemoglobin is within normal limit Kidney functions intact Liver functions intact TSH within normal limit Lipids in reasonable range High HDL level Vitamin-D was 29, for that I have sent supplement patient is to start taking that 1 daily Vital signs stable Medications: New cholecalciferol (vitamin D3) 25 mcg PO DAILY 90 caps 1RF 90 days
== END 2024-03-23 10:59 | disposition home or self-care (01) ==
LOC: HO.HMCC 10:29
PROVIDERS: PCP Internal Medicine; Visit Provider Internal Medicine
DX: E55.9 Vitamin D deficiency, unspecified (principal)

== ENCOUNTER → 2024-03-23 10:29 | Outpatient (BNVA) | payer MEDICARE, SELFPAY | PROVIDERS: PCP Internal Medicine; Visit Provider Internal Medicine | DX: E55.9 Vitamin D deficiency, unspecified (principal) | CPT/HCPCS: 99212 ==

== ENCOUNTER 2024-03-27 10:27 | Outpatient (AMB) | payer MEDICARE, SELFPAY ==
[2024-03-27 10:28] VITALS: BMI 26.6
--- NOTE | 2024-03-27 10:28 | A.OFFVIS_ITS ---
Vital Signs 03/27/24 10:28 Height 5 ft 9 in Weight 180 lb 0.013 oz BMI 26.6 Intake Visit Reasons: 3 week follow up s/p excision Mass~ Lt back Intake Note: Patient here 3wk s/p I&D abscess on Rt lower back. Reports site healing well. Yard Conductor Required: No Accompanied by: Self / Same As Patient Allergies No Known Allergies Allergy (Verified 03/27/24 10:33) HPI Comments Details: Patient is status post I&D of a right lower back complex sebaceous cyst abscess several weeks ago. Presents here for follow-up. He has no wound issues or complaints. He states it is completely healed. [facility] Medical History Personal history of nicotine dependence Tubular adenoma of colon GERD (gastroesophageal reflux disease) Surgical History (Updated 03/27/24 @ 10:48 by Thiago Jackson MD) Status post incision and drainage History of appendectomy History of right inguinal hernia repair History of colonoscopy Family History Father Parkinsons disease Mother No problems noted. 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 Housing: House Alcohol intake: current Alcohol intake frequency: holidays/special occasions only Patient Tobacco Use Status: Current everyday Tobacco user Tobacco use type: Cigarette Cigarettes Per Day: 12 Years Smoked: 1989 e-Cigarette/Vaping Use: Never Used Second Hand Smoke Exposure: No Substance Use Type: Marijuana service: No Current occupational status: retired Cognitive needs: No Hearing needs: No Vision needs: No Physical Exam Vital Signs: BMI result Body Mass Index 26.6 Chest Other: Chest breath sounds bilaterally, HS 1 in 2 GI Other: Abdomen is soft, benign Back/Spine/Pelvis Other: Patient was complete healing right lower back of prior I&D abscess site. Assessment & Plan Assessment & Plan (1) Sebaceous cyst: Code(s): L72.3 - Sebaceous cyst Category: Surgical (2) Status post incision and drainage: Code(s): Z98.890 - Other specified postprocedural states Category: Surgical Plan Patient wanted to discuss therapeutic options which essentially arranged from continued observation or excision. Because of the original abscess was so large and required almost a month heal, my recommendation is to excise this to prevent recurrence. Risks, benefits, alternatives of wide local excision right lower back sebaceous cyst/mass were reviewed with the patient and included but not limited to bleeding, infection, recurrence, numbness, pain, scarring, wound d ehiscence, seroma formation the patient wishes to proceed. He will be contacted and a day which is convenient for him we will be arranged. All questions answered. Coding Level of Care Code Est Pt Level 5 (34862) Diagnoses Sebaceous cyst L72.3 Status post incision and drainage Z98.890
== END 2024-03-27 10:49 | disposition home or self-care (01) ==
LOC: HO.HGS 10:27
PROVIDERS: PCP Internal Medicine; Visit Provider Surgery
DX: L72.3 Sebaceous cyst (principal); Z98.890 Other specified postprocedural states
CPT/HCPCS: 99214

== ENCOUNTER → 2024-03-27 10:27 | Outpatient (BNVA) | payer MEDICARE, SELFPAY | PROVIDERS: PCP Internal Medicine; Visit Provider Surgery | DX: L72.3 Sebaceous cyst (principal); Z98.890 Other specified postprocedural states | CPT/HCPCS: 99212 ==

== ENCOUNTER 2024-04-26 09:50 | Day surgery (SDC) | payer MEDICARE, SELFPAY ==
[2024-04-24 06:59] VITALS: BMI 26.6
--- NOTE | 2024-04-25 10:18 | MHC.SHP ---
Pre-Procedural Eval Section A - 24 Hr Update-Section A only Date of Service: 04/26/24 The patient is an INPATIENT: No Changes since office visit: No Cold of Flu in the past 2 weeks, No New Medical Problems, No Changes in Medication and No Patient answered all questions Section B - Complete if H&P > 30 days Chief Complaint: Sebaceous cyst Allergies: Allergies Allergy/AdvReac Type Severity Reaction Status Date / Time No Known Allergies Allergy Verified 03/27/24 10:33 Review of Systems Sugical H&P ROS: Negative: Constitution, Cardiovascular, Respiratory, Neurological, Psychiatric, Hem-Onc, Allergic/Immunologic, Gastrointestinal, Genitourinary, Musculoskeletal, Integumentary, Endocrine and Eyes/Ears/Nose/Throat Exam Surgical H&P Exam: Normal: HEENT, Normal: Heart, Normal: Lungs, Normal: Extremities, Normal: Abdomen, Normal: Skin and Normal: Neurological Plan I have reviewed the history and physical and performed a pertinent physical examination on my patient. No changes have occurred unless specified. Time Spent With Patient Time: Total time managing care of this patient today ____ minutes.
[2024-04-26 10:29] VITALS: BP 123/77; PULSE 78; RESP 14; TEMP 36.9; O2SAT 96
--- NOTE | 2024-04-26 10:30 | HO.ANESPROP2 ---
Documented by User: Katerina Castro NP 04/24/24 15:18 HPI - Anesthesia Eval Consult details Narrative: 74yo M for Right Wide Local Excision of Sebaceous Cyst on Lower Back PMFSH Active Problems Active Problems: All Active Problems Status post incision and drainage (Acute) Sebaceous cyst (Acute) Vitamin D deficiency (Acute) Personal history of nicotine dependence (Acute) Status post incision and drainage (Acute) Abscess (Acute) Inflamed epidermoid cyst of skin (Acute) Cellulitis (Acute) Pilonidal abscess (Acute) Status post hernia repair (Acute) Inguinal hernia (Acute) Right knee pain (Acute) Impingement syndrome, shoulder, left (Acute) Trapezius muscle spasm (Acute) Thumb pain (Acute) Shoulder pain (Acute) Tubular adenoma of colon (Acute) Dyslipidemia (Acute) Screening for malignant neoplasm of colon (Acute) Dizziness (Acute) Past Medical History Medical History Personal history of nicotine dependence Tubular adenoma of colon GERD (gastroesophageal reflux disease) Family History Family History Father Parkinsons disease Mother No problems noted. Family history of problems with anesthesia: No Surgical History Surgical History (Updated 03/27/24 @ 10:48 by Thiago Jackson MD) Status post incision and drainage History of appendectomy History of right inguinal hernia repair History of colonoscopy History of Problems with Anesthesia: No 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 Housing: House Alcohol intake: current Alcohol intake frequency: holidays/special occasions only Patient Tobacco Use Status: Current everyday Tobacco user Tobacco use type: Cigarette Cigarettes Per Day: 12 Years Smoked: 1989 e-Cigarette/Vaping Use: Never Used Second Hand Smoke Exposure: No Substance Use Type: Marijuana Advance Directives: No Advance Directives Information Provided: Yes service: No Current occupational status: retired Cognitive needs: No Hearing needs: No Vision needs: No Meds Allergies Allergy/AdvReac Type Severity Reaction Status Date / Time No Known Allergies Allergy Verified 04/26/24 10:12 Exam Height,Weight and Vital Signs: Height 5 ft 9 in Weight 81.647 kg Assessment and Plan Assessment Anesthesia Assessment: Chart Reviewed Final Anesthetic Review Family History of Problems with Anesthesia: No History of Problems with Anesthesia: No Documented by User: Lissett Washington DO 04/26/24 10:32 HPI - Anesthesia Eval Consult details Narrative: 74yo M for Right Wide Local Excision of Sebaceous Cyst on Lower Back Smoker [facility] Past Medical History Medical History Personal history of nicotine dependence Tubular adenoma of colon GERD (gastroesophageal reflux disease) Family History Family History Father Parkinsons disease Mother No problems noted. Family history of problems with anesthesia: No Surgical History Surgical History (Updated 03/27/24 @ 10:48 by Thiago Jackson MD) Status post incision and drainage History of appendectomy History of right inguinal hernia repair History of colonoscopy History of Problems with Anesthesia: No 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 Housing: House Alcohol intake: current Alcohol intake frequency: holidays/special occasions only Patient Tobacco Use Status: Current everyday Tobacco user Tobacco use type: Cigarette Cigarettes Per Day: 12 Years Smoked: 1989 e-Cigarette/Vaping Use: Never Used Second Hand Smoke Exposure: No Substance Use Type: Marijuana Advance Directives: No Advance Directives Information Provided: Yes service: No Current occupational status: retired Cognitive needs: No Hearing needs: No Vision needs: No Meds Allergies Allergy/AdvReac Type Severity Reaction Status Date / Time No Known Allergies Allergy Verified 04/26/24 10:12 Exam Exam Date and Time: 04/26/24 1030 Airway Mallampati Class: I TM Dist: >3cm Neck ROM: Full Loose/Missing/Broken Teeth: No (patient denies any loose or broken teeth) Heart: S1S2 Lungs: CTAB Assessment and Plan Assessment Anesthesia Assessment: Anesthesia Plan Discussed and Chart Reviewed Final Anesthetic Review Family History of Problems with Anesthesia: No History of Problems with Anesthesia: No NPO: Yes ASA Class: II Final Preanesthetic Review: No Changes in Pt Med Stat, Meds/Allgs Chart Reviewed, Consent Obtained/Reviewed and Anes Risks/Benef Reviewed Patient Risk: Low Procedure Risk: Low Anesthetic Plan Anesthetic Plan: MAC: and Agree w/ Assess. and Plan Disposition: Standard PACU
[2024-04-26] MEDS: Lactated Ringers 1,000 ML 100 ML IVCONT (10:41)
--- NOTE | 2024-04-26 11:32 | W.PM.OPN ---
Operative Note Operative Note Date of Service: 04/26/24 Narrative: Preoperative diagnosis: [] Right lower back mass/sebaceous cyst Postop diagnosis: [] The same Procedure [] wide local excision right lower back mass/sebaceous cyst Surgeon: [] Manuel Sales Assistant Institutional Sales: [] Lilia Type of Anesthesia: [] MAC Indication for surgery: [] Final specimen size measured roughly 9 x 5 cm, the site of a prior sebaceous cyst which developed abscess and required incision and drainage in the past. Findings: [] Patient was brought to the operating room, placed on operative table supine position, after an adequate level of MAC anesthesia was induced, patient was placed in left lateral decubitus position. Right lower back was prepped and draped in usual sterile fashion. Using 1% lidocaine/0.5% Marcaine at the beginning and at the end of the case, a transverse bi- elliptical incision encompassing the mass in question with final dimensions as described above was performed using a scalpel followed by Bovie. Area was undermined using Bovie and sent to pathology. Wound was irrigated, secured hemostasis, and closed in the following manner; subcutaneous tissue was reapproximated using interrupted 3-0 Vicryl suture. Skin was closed using interrupted inverted dermal 3-0 Vicryl sutures followed by Steri-Strips and sterile dressings. Sponge, needle, and instrument counts were reported to be correct. Patient tolerated the procedure well and emerged from anesthesia stable condition. EBL minimal
[2024-04-26 11:36] VITALS: BP 95/44; PULSE 66; RESP 18; TEMP 36.1; O2SAT 97
[2024-04-26 11:41] VITALS: BP 96/68; PULSE 77; RESP 17; O2SAT 97
[2024-04-26 11:51] VITALS: BP 113/67; PULSE 76; RESP 17; O2SAT 95
[2024-04-26 12:14] VITALS: BP 110/74; PULSE 69; RESP 17; TEMP 36.1; O2SAT 95
== END 2024-04-26 12:39 | disposition home or self-care (01) ==
PROVIDERS: PCP Internal Medicine; Visit Provider Surgery
PROC: (CPT 11406; principal; 2024-04-26 11:50)
DX: L72.3 Sebaceous cyst (principal); K21.9 Gastro-esophageal reflux disease without esophagitis; Z98.890 Other specified postprocedural states; F17.210 Nicotine dependence, cigarettes, uncomplicated
CPT/HCPCS: 11406; 88304; 88305; J0690; J1100; J1885; J2003; J2250; J2371; J2405; J2704; J2795; J3010

== ENCOUNTER → 2024-04-26 09:50 | Outpatient (BNV) | payer MEDICARE, SELFPAY | PROVIDERS: PCP Internal Medicine; Visit Provider Surgery | DX: L72.8 Other follicular cysts of the skin and subcutaneous tissue (principal) | CPT/HCPCS: 11406 ==

== ENCOUNTER 2024-05-07 09:02 | Outpatient (AMB) | payer MEDICARE, SELFPAY ==
--- NOTE | 2024-05-07 09:03 | MHC.OFFVIS ---
Intake Visit Reasons: s/p WLE rt lower back mass Intake Note: Patient here s/p WLE rt lower back cyst. Reports incision healing well. Patient c/o: no concerns. Denies bleeding, pain, itch. Efficiency Clerk Required: No Accompanied by: Self / Same As Patient Allergies No Known Allergies Allergy (Verified 05/07/24 09:06) HPI Comments Details: Patient presents for follow-up. He has no wound issues or complaints. Pathology is benign. [facility] Medical History Personal history of nicotine dependence Tubular adenoma of colon GERD (gastroesophageal reflux disease) Surgical History (Updated 05/07/24 @ 09:26 by Thiago Jackson MD) Hx of surgical procedure (04/26/24) Status post incision and drainage History of appendectomy History of right inguinal hernia repair History of colonoscopy Family History Father Parkinsons disease Mother No problems noted. 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 Housing: House Are you a primary direct support professional caregiver to a significant other at home: No Do you presently have visiting nurse or other home services: No Alcohol intake: current Alcohol intake frequency: holidays/special occasions only Patient Tobacco Use Status: Current everyday Tobacco user Tobacco use type: Cigarette Cigarettes Per Day: 10 Years Smoked: 1989 e-Cigarette/Vaping Use: Never Used Second Hand Smoke Exposure: No Substance Use Type: Marijuana service: No Current occupational status: retired Cognitive needs: No Hearing needs: No Vision needs: No Physical Exam Back/Spine/Pelvis Other: Right lower back incision is clean dry and intact healing very well Assessment & Plan Assessment & Plan (1) Postop check: Code(s): Z09 - Encounter for follow-up examination after completed treatment for conditions other than malignant neoplasm Category: Surgical Plan Patient was been given local instructions, and will otherwise follow-up p.r.n.. He should avoid strenuous activities next few weeks time. All questions answered Coding Level of Care Code Global (11810) Diagnoses Postop check Z09
== END 2024-05-07 09:12 | disposition home or self-care (01) ==
PROVIDERS: PCP Internal Medicine; Visit Provider Surgery
DX: Z09 Encounter for follow-up examination after completed treatment for conditions other than malignant neoplasm (principal)
CPT/HCPCS: 99024

== ENCOUNTER → 2024-05-07 09:02 | Outpatient (BNVA) | payer MEDICARE, SELFPAY | PROVIDERS: PCP Internal Medicine; Visit Provider Surgery | DX: Z09 Encounter for follow-up examination after completed treatment for conditions other than malignant neoplasm (principal); Z87.2 Personal history of diseases of the skin and subcutaneous tissue; Z98.890 Other specified postprocedural states | CPT/HCPCS: 99212 ==

== ENCOUNTER 2024-06-11 08:47 | Outpatient (AMB) | payer MEDICARE, SELFPAY ==
--- NOTE | 2024-06-11 08:57 | MHC.OFFVIS ---
Intake Visit Reasons: wound check,oozing WLE right lower back mass Allergies No Known Allergies Allergy (Verified 05/07/24 09:06) HPI Comments Details: Patient presents here because he is extruding a suture from his left lower back incision. Otherwise no wound issues or complaints. [facility] Medical History Personal history of nicotine dependence Tubular adenoma of colon GERD (gastroesophageal reflux disease) Surgical History (Updated 06/11/24 @ 09:26 by Thiago Jackson MD) Hx of surgical procedure (04/26/24) Status post incision and drainage History of appendectomy History of right inguinal hernia repair History of colonoscopy Family History Father Parkinsons disease Mother No problems noted. 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 Housing: House Are you a primary child care centre director to a significant other at home: No Do you presently have visiting nurse or other home services: No Alcohol intake: current Alcohol intake frequency: holidays/special occasions only Patient Tobacco Use Status: Current everyday Tobacco user Tobacco use type: Cigarette Cigarettes Per Day: 10 Years Smoked: 1989 e-Cigarette/Vaping Use: Never Used Second Hand Smoke Exposure: No Substance Use Type: Marijuana service: No Current occupational status: retired Cognitive needs: No Hearing needs: No Vision needs: No Physical Exam Back/Spine/Pelvis Other: Uneventful stitch abscess removed. Dressing applied. Well-tolerated Assessment & Plan Assessment & Plan (1) Postoperative stitch abscess: Code(s): T81.41XA - Infection following a procedure, superficial incisional surgical site, initial encounter Category: Surgical Plan Patient was been given local instructions, and otherwise follow-up p.r.n.. All questions answered. Coding Level of Care Code Global (28054) Diagnoses Postoperative stitch abscess T81.41XA
== END 2024-06-11 09:27 | disposition home or self-care (01) ==
PROVIDERS: PCP Internal Medicine; Visit Provider Surgery
DX: T81.41XA Infection following a procedure, superficial incisional surgical site, initial encounter (principal)
CPT/HCPCS: 99024

== ENCOUNTER → 2024-06-11 08:47 | Outpatient (BNVA) | payer MEDICARE, SELFPAY | PROVIDERS: PCP Internal Medicine; Visit Provider Surgery | DX: Z09 Encounter for follow-up examination after completed treatment for conditions other than malignant neoplasm (principal); T81.41XA Infection following a procedure, superficial incisional surgical site, initial encounter | CPT/HCPCS: 99212 ==

== ENCOUNTER 2024-07-04 13:29 | Outpatient (AMB) | payer MEDICARE, SELFPAY ==
[2024-07-04 13:32] VITALS: BP 134/80; PULSE 82; RESP 18; TEMP 36.6; O2SAT 97; BMI 28.5
--- NOTE | 2024-07-04 13:32 | A.OFFPC_ITS ---
Vital Signs 3 07/04/24 13:32 Height 5 ft 9 in Weight 193 lb BMI 28.5 BP 134/80 Blood Pressure Location Rt brachial Position Sitting Respiration 18 Pulse 82 Pulse Source Pulse Oximeter Temp 98 F Temp Source Oral Pulse Oximetry (%) 97 Oxygen Delivery Method Room Air Intake Visit Reasons: cist flareup Allergies No Known Allergies Allergy (Verified 07/04/24 13:39) Medication List - Last Reconciled 07/04/24 by Denzel Key MD cholecalciferol (vitamin D3) 25 mcg PO DAILY 90 days Tobacco use date assessed: 07/04/24 Fall risk assessment: No Falls in past year Last assessed Fall Risk: 07/04/24 Dental Screening Dental Screen Date: 07/04/24 Did you have a dental visit in the last 12 months?: Yes Did you have a dental problem in the last 6 months where you did not have access to dental care?: No Was dental information given to patient?: Patient has dentist HPI cist flareup 2 HPI0 Details History - The patient is a 74-year-old male pres enting with a skin abscess. - Identifies a history of a previous cys t on the back - The current abscess developed approxim ately two weeks ago on the right lower back, differing in position from the initial cyst. - Reports active drainage of pus from th e abscess. - Current management includes gentle was randal with water in the shower. - Engages in a dialogue regarding the ne cessity for another surgical intervention in parallel with past treatment modalities. Problem List - Skin Abscess - History of Cyst Patient Instructions - Allow water to run gently over the abs cess during the shower, refraining from scrubbing or applying ointments. - Monitor for any changes in the drainag e, increase in pain, or signs of spreading infection (such as redness or fever), and seek medical attention if these symptoms occur. - Plan to follow up with Dr. Jackson for f amanda evaluation and potential treatment of the abscess. - Advised to continue monitoring any new symptoms and report them at follow-up appointments. Review of Systems - General: No fever no chills - Neurological: No headaches no dizziness - Ear nose throat: No sore throat no hearing difficulty no ear pain - Cardiovascular: No syncope, no chest pain, no palpitations - Gastrointestinal: No nausea vomiting or diarrhea - Endocrine: No polyuria polydipsia no heat intolerance - Genitourinary: No dysuria , no blood in urine Physical Exam General: No acute distress HEENT: No acute findings Neck: Supple Respiratory system: Able to talk in full sentences, no audible wheeze cardiovascular: S1-S2 regular in rate and rhythm Gastrointestinal: No pain Extremities: No new findings CUSTOMIZER: Alert awake oriented x3 motor sensory intact Skin: Abscess present, draining pus, requires further evaluation and treatment Please see the image below [facility] Medical History Personal history of nicotine dependence Tubular adenoma of colon GERD (gastroesophageal reflux disease) Surgical History Hx of surgical procedure (04/26/24) Status post incision and drainage History of appendectomy History of right inguinal hernia repair History of colonoscopy Family History Father Parkinsons disease Mother No problems noted. 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 Housing: House Are you a primary senior care manager to a significant other at home: No Do you presently have visiting nurse or other home services: No Alcohol intake: current Alcohol intake frequency: holidays/special occasions only Patient Tobacco Use Status: Current everyday Tobacco user Tobacco use type: Cigarette Cigarettes Per Day: 10 Years Smoked: 1989 e-Cigarette/Vaping Use: Never Used Second Hand Smoke Exposure: No Substance Use Type: Marijuana service: No Current occupational status: retired Cognitive needs: No Hearing needs: No Vision needs: No Questionnaire PHQ-9 Over the last 2 weeks, how often have you been bothered by any of the following problems? 1. Little interest or pleasure in doing things: not at all 2. Feeling down, depressed, or hopeless: not at all 3. Trouble falling or staying asleep, or sleeping too much: not at all 4. Feeling tired or having little energy: not at all 5. Poor appetite or overeating: not at all 6. Feeling bad about yourself - or that you are a failure or have let yourself or your family down: not at all 7. Trouble concentrating on things, such as reading the newspaper or watching television: not at all 8. Moving or speaking so slowly that other people could have noticed. Or the opposite - being so fidgety or restless that you have been moving around a lot more than usual: not at all 9. Thoughts that you would be better off or of hurting yourself in some way: not at all Total score: 0 Depression Screening Interpretation: Negative Depression Screening Done: Yes 82443 - PHQ-9 Billing: Yes Source: Developed by Drs. Fernando Moncada, Ami Ram, Elan Dominguez and colleagues, with an educational nicki from [employer]. Thrive Questionnaire Date Thrive assessed: 07/04/24 I am a: Patient What is your living situation today?: I have a steady place to live Within the past 12 months, did the food you bought not last and you didn't have the money to get more?: Never true Within the past 12 months, did you worry whether your food would run out before you got money to buy more?: Never true Do you have trouble paying for medicines?: No Do you have trouble getting transportation to medical appointments?: No Do you have trouble paying your heating and electricity bill?: No Do you have trouble taking care of your child, family member or friend?: No Do you have trouble with day-to-day activities such as bathing, preparing meals, shopping, managing finances, etc.?: No Are you currently unemployed and looking for a job?: No Are you interested in more education?: No Currently or been in a relationship where the following occur: No concerns reported THRIVE Score: 0 AUDIT C Alcohol Use Questionnaire (AUDIT-C) 1. How often do you have a drink containing alcohol?: 2-4 times a month 2. How many drinks containing alcohol do you have on a typical day when you are drinking?: 1 or 2 3. How often do you have six or more drinks on one occasion?: Never Total Score: 2 Score Reviewed/Action Taken: Yes LEILA-7 AMB Questionnaire LEILA-7 Date LEILA - 7 assessed: 07/04/24 Feeling nervous, anxious, or on edge: 0 = Not at all Not being able to stop or control worryin = Not at all Worrying too much about different things: 0 = Not at all Trouble relaxin = Not at all Being so restless that it is hard to sit still: 0 = Not at all Becoming easily annoyed or irritable: 0 = Not at all Feeling afraid as if something awful might happen: 0 = Not at all Total LEILA-7 score (0-4 normal; 5-9 mild; 10-14 moderate; 15-21 severe): 0 Source: Developed by Drs. Fernando Moncada, Ami Ram, Elan Dominguez and colleagues, with an educational nicki from [employer]. LEILA-7 Assessment Billing LEILA-7 Assessment Tool: LEILA-7 Assessment 85377 Physical exam (Primary Care) Vital Signs: Last Vital Signs Temp 98 F 07/04/24 13:32 Pulse 82 07/04/24 13:32 Resp 18 07/04/24 13:32 BP 134/80 07/04/24 13:32 Pulse Ox 97 07/04/24 13:32 Oxygen Delivery Method Room Air 07/04/24 13:32 BMI result Body Mass Index 28.5 Tobacco/Smoking Status: Tobacco use Status Tobacco use date assessed 07/04/24 07/04/24 13:40 Patient Tobacco Use Status Current everyday Tobacco 07/04/24 13:33 Tobacco use type Cigarette 07/04/24 13:33 e-Cigarette/Vaping Use Never Used 07/04/24 13:33 PHQ-9: PHQ-9 Score PHQ-9: Total score 0 07/04/24 13:40 Depression Screening Interpretation: Negative Thrive Assessment: Date of Thrive Assessment Date Thrive assessed 07/04/24 07/04/24 13:40 Currently or been in a relationship where the following occur: No concerns reported Skin Other: Coding Level of Care Code Est Pt Level 4 (88337) Diagnoses Abscess L02.91 Additional Codes LEILA-7 Assessment Billing - LEILA-7 Assessment Tool: LEILA-7 Assessment 35526 ([id number]) PHQ-9 - 07006 - PHQ-9 Billing: Yes ([id number]) Assessment & Plan Assessment & Plan (1) Abscess: Code(s): L02.91 - Cutaneous abscess, unspecified Category: Surgical Plan History - The patient is a 74-year-old male presenting with a skin abscess. - Identifies a history of a previous cyst on the back - The current abscess developed approximately two weeks ago on the right lower back, differing in position from the initial cyst. - Reports active drainage of pus from the abscess. - Current management includes gentle washing with water in the shower. - Engages in a dialogue regarding the necessity for another surgical intervention in parallel with past treatment modalities. Problem List - Skin Abscess - History of Cyst Patient Instructions - Allow water to run gently over the abscess during the shower, refraining from scrubbing or applying ointments. - Monitor for any changes in the drainage, increase in pain, or signs of spreading infection (such as redness or fever), and seek medical attention if these symptoms occur. - Plan to follow up with Dr. Jackson for further evaluation and potential treatment of the abscess. - Advised to continue monitoring any new symptoms and report them at follow-up appointments. A stat referral created, message sent to Dr. Jackson for coordination of care Orders: Referrals 2 General Surgery Referral L02.91 - Cutaneous abscess, unspecified Medications: New 2 amoxicillin-pot clavulanate 500-125 mg (Augmentin) 1 tab PO TID 10 days 30 tabs 0RF
--- OUTSIDE RECORDS SUMMARY | 2024-07-04 14:54 | XMS_ITS | Clinical Summary ---
Author Organization [facility] Address [address] [place] [address] Care Team Providers Care Senior Group Manager Name Role Phone Pcp, No Primary Care Provider Unavailabl e Allergies No known active allergies Medications Medication Sig Dispensed Refills Start Date End Date Status cyclobenzaprine (FLEXERIL) 5 MG tablet TAKE 1-2 TABLETS BY MOUTH THREE TIMES DAILY NEEDED FOR MUSCLE SPASMS 11/18/2020 Active 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 Tobacco Use Types Packs/Day Years Used Date Smoking Tobacco: Never Assessed Sex and Gender Information Value Date Recorded Sex Assigned at Not on file Gender Identity Not on file Sexual Orientation Not on file Last Filed Vital Signs Vital Sign Reading Time Taken Comments Blood Pressure 118/77 12/23/2020 3:19 PM EDT Pulse 75 12/23/2020 3:19 PM EDT Temperature 36.1 ??C (96.9 ??F) 12/23/2020 3:19 PM ED T Respiratory Rate - - Oxygen Saturation 99% 12/23/2020 3:19 PM EDT Inhaled Oxygen Concentration - - Weight - - Height - - Body Mass Index - - Plan of Treatment Health Maintenance Due Date Last Done Comments Hepatitis C Virus Screening 1950 DTaP/Tdap/Td Vaccines (1 - Tdap) 1970 Colonoscopy 01/30/1996 Pneumococcal Vaccines 50+ (1 of 1 - PCV) 2001 Zoster (Shingles) Vaccine (1 of 2) 2001 Influenza Vaccine 12/22/2023 COVID-19 Vaccine ( - 2023-2 5 season) 2024 RSV Vaccine 60 years and old er and Patients (1 - 1-dose 75+ series) 2026 Hepatitis B Vaccines Aged Out No long er eligible based on patient's age to complete this topic Care Teams Senior Group Manager Relationship Specialty Start Date End Date Pcp, No PCP - General General Medicine 11/23/20
== END 2024-07-04 14:33 | disposition home or self-care (01) ==
LOC: HO.HMCC 13:29
PROVIDERS: PCP Internal Medicine; Visit Provider Internal Medicine
DX: L02.91 Cutaneous abscess, unspecified (principal)

== ENCOUNTER → 2024-07-04 13:29 | Outpatient (BNVA) | payer MEDICARE, SELFPAY | PROVIDERS: PCP Internal Medicine; Visit Provider Internal Medicine | DX: L02.91 Cutaneous abscess, unspecified (principal) | CPT/HCPCS: 96127; 99212 ==

== ENCOUNTER 2024-07-05 12:48 | Outpatient (REF) | payer MEDICARE, SELFPAY ==
--- OUTSIDE RECORDS SUMMARY | 2024-07-05 13:44 | XMS_ITS | Clinical Summary ---
Author Organization [facility] Address [address] [place] [address] Care Team Providers Care School Leader Name Role Phone Pcp, No Primary Care [...] age to complete this topic Care Teams School Leader Relationship Specialty Start Date End Date Pcp, No PCP - General General Medicine 11/23/20
== END 2024-07-05 12:49 | disposition home or self-care (01) ==
LOC: HO.LNP 12:48
PROVIDERS: PCP Internal Medicine; Visit Provider Surgery
DX: L72.3 Sebaceous cyst (principal); Z98.890 Other specified postprocedural states
CPT/HCPCS: 10060; 87070; 87077; 87186; 87205; 99202; 99212

== ENCOUNTER 2024-07-05 12:48 | Outpatient (AMB) | payer MEDICARE, SELFPAY ==
--- NOTE | 2024-07-05 12:54 | A.OFFVIS_ITS ---
Vital Signs 3 07/05/24 13:29 Height 5 ft 9 in Weight 192 lb 6 oz BMI 28.4 BP 140/72 H Blood Pressure Location Lt brachial Position Sitting Pulse 85 Intake Visit Reasons: ? I&D abscess~ back Intake Note: Patient is seen in office for abscess of the back, possible I&D (seen Dr Jackson). Pt c/o: states cyst never left, was I&D by Dr Jackson a couple of times and area is still leaking, states is a new area has emerge and is red, discharge, pus, started antbx yesterday provided by PCP Plant Pathology Teacher Required: No Accompanied by: Self / Same As Patient Allergies No Known Allergies Allergy (Verified 07/05/24 13:09) Medication List - Last Reconciled 07/05/24 by Joe Pierre MD amoxicillin-pot clavulanate 500-125 mg (Augmentin) 1 tab PO TID 10 days cholecalciferol (vitamin D3) 25 mcg PO DAILY 90 days HPI Comments Details: 73-year-old male patient with a previous history of a sebaceous cyst abscess of the lower right back now presenting with a new cyst just below the previous. He reports pain and bleeding. Was recently in [place] last week denied any injury to the site. He denies fever or chills. [facility] Medical History Personal history of nicotine dependence Tubular adenoma of colon GERD (gastroesophageal reflux disease) Surgical History Hx of surgical procedure (04/26/24) Status post incision and drainage History of appendectomy History of right inguinal hernia repair History of colonoscopy Family History Father Parkinsons disease Mother No problems noted. 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 Housing: House Are you a primary career transition specialist to a significant other at home: No Do you presently have visiting nurse or other home services: No Alcohol intake: current Alcohol intake frequency: holidays/special occasions only Patient Tobacco Use Status: Current everyday Tobacco user Tobacco use type: Cigarette Cigarettes Per Day: 10 Years Smoked: 1989 e-Cigarette/Vaping Use: Never Used Second Hand Smoke Exposure: No Substance Use Type: Marijuana service: No Current occupational status: retired Cognitive needs: No Hearing needs: No Vision needs: No Review of Systems Const All systems reviewed & are unremarkable except as noted in HPI and below Physical Exam Const General: comfortable Nutritional Appearance: well nourished Orientation/consciousness: patient oriented x3 Limitations: no limitations Resp Effort & Inspection: normal respiratory effort, no audible wheezes, no cough and no respiratory distress Back/Spine/Pelvis Other: Large infected sebaceous cyst of the lower back located below the previous excision site as noted below Neuro General: patient oriented x3 Office Procedures Incision and Drainage Details: Preoperative diagnosis: Abscess right lower back Postoperative diagnosis: Same Procedure: Incision and drainage abscess right lower back Surgeon: Joe Pierre MD Book Store Associate: None Anesthesia: Local Indications for procedure: New abscess right lower back Operative findings: Small abscess collection right lower back Specimen: Wound culture Estimated blood loss: None Complications: None Procedure details: Patient was placed in the procedure room and placed in a prone position. The site of surgery was confirmed by the patient in the right lower back. After assuring informed consent the skin was prepped with Betadine and draped in a sterile fashion. Local anesthesia was then infiltrated around the infected cyst. An incision was then performed using a 11 blade. A hemostat was then used to open the wound further to allow complete drainage of the abscess. Wound cultures were obtained. Wounds were then packed with quarter- inch Nu Gauze soaked in lidocaine. Sterile dressings were then applied. The patient tolerated the procedure well and was discharged home in stable condition. Assessment & Plan Assessment & Plan (1) Status post incision and drainage: Code(s): Z98.890 - Other specified postprocedural states Category: Surgical Plan: Patient returns with a new abscess of the right lower back. This was incised and drained today of a small abscess collection. Wounds were then packed with Nu Gauze and covered with dry sterile dressings. Patient tolerated the procedure well. He will return tomorrow for dressing change. He will follow up next week for wound check. Coding Level of Care Code New Pt Level 4 (59402) Diagnoses Status post incision and drainage Z98.890
--- OUTSIDE RECORDS SUMMARY | 2024-07-05 12:55 | XMS_ITS | Clinical Summary ---
Author Organization [facility] Address [address] [place] [address] Care Team Providers Care Manager Medicare Name Role Phone Pcp, No Primary Care [...] age to complete this topic Care Teams Manager Medicare Relationship Specialty Start Date End Date Pcp, No PCP - General General Medicine 11/23/20
[2024-07-05 13:29] VITALS: BP 140/72; PULSE 85; BMI 28.4
== END 2024-07-05 13:43 | disposition home or self-care (01) ==
PROVIDERS: PCP Internal Medicine; Visit Provider Surgery
DX: Z98.890 Other specified postprocedural states (principal)
CPT/HCPCS: 99204

== ENCOUNTER → 2024-07-06 10:50 | Outpatient (BNVA) | payer MEDICARE, SELFPAY | PROVIDERS: PCP Internal Medicine; Visit Provider Surgery | DX: Z48.01 Encounter for change or removal of surgical wound dressing (principal) | CPT/HCPCS: 99211 ==

== ENCOUNTER 2024-07-13 13:33 | Outpatient (AMB) | payer MEDICARE, SELFPAY ==
--- NOTE | 2024-07-13 13:35 | MHC.OFFVIS ---
Intake Visit Reasons: one wks follow up, abscess of the back Intake Note: Patient is seen in office for one week follow up visit, post I&D abscess right lower back. Pt c/o: no concerns. Bandage removed. Yellowish discharge noted. Reports Augmentin course will be finished in a couple of days. Paper Plate Machine Tender Required: No Accompanied by: Self / Same As Patient Allergies No Known Allergies Allergy (Verified 07/13/24 13:42) HPI Comments Details: 73-year-old male patient with a previous history of a sebaceous cyst abscess of the lower right back returning 1 week following incision and drainage of a new abscess in the right lower back. He reports feeling improved with decreased pain but still has some discharge. Wound cultures revealed MRSA. He denies a previous history of MRSA. [facility] Medical History Personal history of nicotine dependence Tubular adenoma of colon GERD (gastroesophageal reflux disease) Surgical History Hx of surgical procedure (04/26/24) Status post incision and drainage History of appendectomy History of right inguinal hernia repair History of colonoscopy Family History Father Parkinsons disease Mother No problems noted. 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 Housing: House Are you a primary behavioral health care coordinator to a significant other at home: No Do you presently have visiting nurse or other home services: No Alcohol intake: current Alcohol intake frequency: holidays/special occasions only Patient Tobacco Use Status: Current everyday Tobacco user Tobacco use type: Cigarette Cigarettes Per Day: 10 Years Smoked: 1989 e-Cigarette/Vaping Use: Never Used Second Hand Smoke Exposure: No Substance Use Type: Marijuana service: No Current occupational status: retired Cognitive needs: No Hearing needs: No Vision needs: No Physical Exam Const General: no acute distress Nutritional Appearance: well nourished Orientation/consciousness: patient oriented x3 Resp Effort & Inspection: normal respiratory effort Back/Spine/Pelvis Other: Incision and drainage site is open and draining with some small amount of purulence discharge noted. The erythema surrounding the wound is much improved. Dressings were changed and dry sterile dressings applied. Neuro General: patient oriented x3 Assessment & Plan Assessment & Plan (1) Status post incision and drainage: Code(s): Z98.890 - Other specified postprocedural states Category: Surgical (2) Abscess: Code(s): L02.91 - Cutaneous abscess, unspecified Category: Surgical Plan 74-year-old male patient with a new abscess in the right lower back status post incision and drainage. Wound cultures revealed MRSA. He completed his previous antibiotics but we will be restarted on Bactrim to cover the MRSA. He will return in 2 weeks for follow-up examination. He may benefit from Hibiclens scrubs to prevent further skin infections. Medications: New sulfamethoxazole-trimethoprim 800-160 mg (Bactrim DS) 1 tab PO Q12H 14 tabs 0RF L02.91 - Cutaneous abscess, unspecified, Z98.890 - Other specified postprocedural states Discontinued amoxicillin-pot clavulanate 500-125 mg (Augmentin) Discontinued Reason: Doctor's Order 1 tab PO TID 10 days 30 tabs 0RF Coding Level of Care Code Global (21135) Diagnoses Status post incision and drainage Z98.890 Abscess L02.91
--- OUTSIDE RECORDS SUMMARY | 2024-07-13 14:05 | XMS_ITS | Clinical Summary ---
Author Organization [facility] Address [address] [place] [address] Care Team Providers Care Kaiawhina Name Role Phone Pcp, No Primary Care [...] age to complete this topic Care Teams Kaiawhina Relationship Specialty Start Date End Date Pcp, No PCP - General General Medicine 11/23/20
== END 2024-07-13 13:49 | disposition home or self-care (01) ==
PROVIDERS: PCP Internal Medicine; Visit Provider Surgery
DX: Z98.890 Other specified postprocedural states (principal); L02.91 Cutaneous abscess, unspecified
CPT/HCPCS: 99024

== ENCOUNTER → 2024-07-13 13:33 | Outpatient (BNVA) | payer MEDICARE, SELFPAY | PROVIDERS: PCP Internal Medicine; Visit Provider Surgery | DX: Z48.817 Encounter for surgical aftercare following surgery on the skin and subcutaneous tissue (principal); Z98.890 Other specified postprocedural states | CPT/HCPCS: 99212 ==

== ENCOUNTER 2024-07-27 09:28 | Outpatient (AMB) | payer MEDICARE, SELFPAY ==
--- NOTE | 2024-07-27 09:29 | MHC.OFFVIS ---
Vital Signs 07/27/24 09:35 Height 5 ft 9 in Weight 197 lb 2 oz BMI 29.1 BP 134/60 Blood Pressure Location Lt brachial Position Sitting Pulse 88 Intake Visit Reasons: 2wk follow up, abscess of Rt lower he back Intake Note: Patient is seen in office for 2 weeks follow up, abscess of Rt lower he back. Pt c/o: all done with antbx, minimal discharge, abscess decrease in size, smaller than a pencil eraser Scrap Carrier Required: No Accompanied by: Self / Same As Patient Allergies No Known Allergies Allergy (Verified 07/27/24 09:34) HPI Comments Details: 73-year-old male patient with a previous history of a sebaceous cyst abscess of the lower right back returning 3 weeks following incision and drainage of a new abscess in the right lower back. He reports feeling improved with decreased pain but still has some discharge. Wound cultures revealed MRSA. He denies a previous history of MRSA. [facility] Medical History Personal history of nicotine dependence Tubular adenoma of colon GERD (gastroesophageal reflux disease) Surgical History Hx of surgical procedure (04/26/24) Status post incision and drainage History of appendectomy History of right inguinal hernia repair History of colonoscopy Family History Father Parkinsons disease Mother No problems noted. 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 Housing: House Are you a primary regular senior care provider to a significant other at home: No Do you presently have visiting nurse or other home services: No Alcohol intake: current Alcohol intake frequency: holidays/special occasions only Patient Tobacco Use Status: Current everyday Tobacco user Tobacco use type: Cigarette Cigarettes Per Day: 10 Years Smoked: 1989 e-Cigarette/Vaping Use: Never Used Second Hand Smoke Exposure: No Substance Use Type: Marijuana service: No Current occupational status: retired Cognitive needs: No Hearing needs: No Vision needs: No Physical Exam Vital Signs: Last Vital Signs Pulse 88 07/27/24 09:35 BP 134/60 07/27/24 09:35 BMI result Body Mass Index 29.1 Const General: no acute distress Nutritional Appearance: well nourished Orientation/consciousness: patient oriented x3 Resp Effort & Inspection: normal respiratory effort Back/Spine/Pelvis Other: Incision and drainage site is nearly completely healed with only a pinpoint opening remaining. A dry sterile dressing was applied. The cyst measures approximately 2 cm in diameter. Back/spine/pelvis image: 1. Site of residual epidermal inclusion cyst right lower back Neuro General: patient oriented x3 Assessment & Plan Assessment & Plan (1) Status post incision and drainage: Code(s): Z98.890 - Other specified postprocedural states Category: Surgical (2) Abscess: Code(s): L02.91 - Cutaneous abscess, unspecified Category: Surgical Plan 74-year-old male patient with a new abscess in the right lower back status post incision and drainage. Wound cultures revealed MRSA. Patient feels much improved with no further pain and minimal drainage from the site. I recommended excision of this residual cyst either under local anesthesia or as a short-stay surgery. He previously underwent excision with a short-stay surgery and would like to do the same for this lesion. After discussion of the procedure, risks, and alternatives, he consents to an excision of the epidermal inclusion cyst as a short-stay surgery. Coding Level of Care Code Est Pt Level 3 (12113) Diagnoses Status post incision and drainage Z98.890 Abscess L02.91
[2024-07-27 09:35] VITALS: BP 134/60; PULSE 88; BMI 29.1
--- OUTSIDE RECORDS SUMMARY | 2024-07-27 10:13 | XMS_ITS | Clinical Summary ---
Author Organization [facility] Address [address] [place] [address] Care Team Providers Care Manager Compliance Name Role Phone Pcp, No Primary Care [...] to complete this topic Care Teams Manager Compliance Relationship Specialty Start Date End Date Pcp, No PCP - General General Medicine 11/23/20
== END 2024-07-27 09:58 | disposition home or self-care (01) ==
PROVIDERS: PCP Internal Medicine; Visit Provider Surgery
DX: Z98.890 Other specified postprocedural states (principal); L02.91 Cutaneous abscess, unspecified
CPT/HCPCS: 99213

== ENCOUNTER → 2024-07-27 09:28 | Outpatient (BNVA) | payer MEDICARE, SELFPAY | PROVIDERS: PCP Internal Medicine; Visit Provider Surgery | DX: Z48.817 Encounter for surgical aftercare following surgery on the skin and subcutaneous tissue (principal); Z98.890 Other specified postprocedural states | CPT/HCPCS: 99212 ==

== ENCOUNTER 2024-08-09 11:06 | Outpatient (AMB) | payer MEDICARE, SELFPAY ==
--- NOTE | 2024-08-09 11:08 | MHC.OFFVIS ---
Vital Signs 08/09/24 11:18 Height 5 ft 9 in Weight 195 lb BMI 28.8 BP 144/78 H Blood Pressure Location Lt brachial Position Sitting Pulse 85 Intake Visit Reasons: New inflamed cyst on lower back Intake Note: Patient is seen in office for evaluation of a new inflammed cyst on the lower back. Pt c/o: admits to a new lump under the prior lump, onset couple of days, no discharge, not on antbx [place] sched:08/22/24 Ammonia Operator Required: No Accompanied by: Self / Same As Patient Allergies No Known Allergies Allergy (Verified 08/09/24 11:17) Medication List - Last Reconciled 08/09/24 by Joe Pierre MD cholecalciferol (vitamin D3) 25 mcg PO DAILY 90 days mupirocin calcium 2% 1 appl topical BID sulfamethoxazole-trimethoprim 800-160 mg (Bactrim DS) 1 tab PO Q12H HPI Comments Details: 73-year-old male patient with a previous history of a sebaceous cyst abscess of the lower right back returning once again with a new (3rd) infected epidermal inclusion cyst in the lower right back. He previously underwent incision and drainage of 2 other similar skin lesions the last of which revealed MRSA. He now has a new area which is causing increased pain and swelling. He denies any bleeding or discharge from the site. He was scheduled for excision of the 2nd lesion as a minor surgery in 2 weeks. He was planning on marching in the [facility] Day parade in [place] this weekend. [facility] Medical History Personal history of nicotine dependence Tubular adenoma of colon GERD (gastroesophageal reflux disease) Surgical History Hx of surgical procedure (04/26/24) Status post incision and drainage History of appendectomy History of right inguinal hernia repair History of colonoscopy Family History Father Parkinsons disease Mother No problems noted. 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 Housing: House Are you a primary caretaker grounds to a significant other at home: No Do you presently have visiting nurse or other home services: No Alcohol intake: current Alcohol intake frequency: holidays/special occasions only Patient Tobacco Use Status: Current everyday Tobacco user Tobacco use type: Cigarette Cigarettes Per Day: 10 Years Smoked: 1989 e-Cigarette/Vaping Use: Never Used Second Hand Smoke Exposure: No Substance Use Type: Marijuana service: No Current occupational status: retired Cognitive needs: No Hearing needs: No Vision needs: No Review of Systems Const All systems reviewed & are unremarkable except as noted in HPI and below Physical Exam Const General: no acute distress Nutritional Appearance: well nourished Orientation/consciousness: patient oriented x3 Resp Effort & Inspection: normal respiratory effort Back/Spine/Pelvis Other: Incision and drainage site is completely healed but now a new cyst is located slightly inferior to this also on the right side measuring approximately 1.5 cm in diameter. It is inflamed not fluctuant. No bleeding or discharge is identified. A dry sterile dressing was applied. 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 Lesion is not fluctuant therefore incision and drainage was not performed today. I recommended starting antibiotics and applying mupirocin topically. He expressed understanding and agrees with the plan. He will return for excision of the cyst in 2 weeks. He should call sooner if no improvement with the antibiotics. Medications: New mupirocin calcium 2% 1 appl topical BID 15 grams 0RF B95.62 - Methicillin resistant Staphylococcus aureus infection as the cause of diseases classified elsewhere, L08.9 - Local infection of the skin and subcutaneous tissue, unspecified oxycodone Partial Fill upon patient request. 5 mg PO Q8H PRN 10 tabs 0RF pain sulfamethoxazole-trimethoprim 800-160 mg (Bactrim DS) 1 tab PO Q12H 20 tabs 0RF Coding Level of Care Code Est Pt Level 3 (16535) Diagnoses Infection of skin due to methicillin resistant Staphylococcus aureus (MRSA) L08.9; B95.62
[2024-08-09 11:18] VITALS: BP 144/78; PULSE 85; BMI 28.8
--- OUTSIDE RECORDS SUMMARY | 2024-08-09 13:09 | XMS_ITS | Clinical Summary ---
Author Organization [facility] Address [address] [place] [address] Care Team Providers Care Food Production Supervisor Name Role Phone Pcp, No Primary Care [...] age to complete this topic Care Teams Food Production Supervisor Relationship Specialty Start Date End Date Pcp, No PCP - General General Medicine 11/23/20
== END 2024-08-09 11:28 | disposition home or self-care (01) ==
LOC: HO.HGS 11:07
PROVIDERS: PCP Internal Medicine; Visit Provider Surgery
DX: L08.9 Local infection of the skin and subcutaneous tissue, unspecified (principal); B95.62 Methicillin resistant Staphylococcus aureus infection as the cause of diseases classified elsewhere
CPT/HCPCS: 99213

== ENCOUNTER → 2024-08-09 11:06 | Outpatient (BNVA) | payer MEDICARE, SELFPAY | PROVIDERS: PCP Internal Medicine; Visit Provider Surgery | DX: L72.0 Epidermal cyst (principal); L08.9 Local infection of the skin and subcutaneous tissue, unspecified; B95.62 Methicillin resistant Staphylococcus aureus infection as the cause of diseases classified elsewhere | CPT/HCPCS: 99212 ==

== ENCOUNTER → 2024-09-12 07:56 | Day surgery (SDC) | payer MEDICARE, SELFPAY ==
--- OUTSIDE RECORDS SUMMARY | 2024-07-27 15:51 | XMS_ITS | Clinical Summary ---
Author Organization [facility] Address [address] [place] [address] Care Team Providers Care Framing Carpenter Name Role Phone Pcp, No Primary Care [...] age to complete this topic Care Teams Framing Carpenter Relationship Specialty Start Date End Date Pcp, No PCP - General General Medicine 11/23/20
[2024-09-07 14:47] VITALS: BMI 28.8
--- NOTE | 2024-09-11 09:53 | HO.ANESPROP2 ---
Documented by User: Katerina Castro NP 09/11/24 09:53 HPI - Anesthesia Eval Consult details Narrative: 74yo M for Right Excision of Epidermal Inclusion Cyst on Back PMFSH Active Problems Active Problems: All Active Problems Infection of skin due to methicillin resistant Staphylococcus aureus (MRSA) (Acute) Postoperative stitch abscess (Acute) Postop check (Acute) Status post incision and drainage (Acute) Sebaceous cyst (Acute) Vitamin D deficiency (Acute) Abscess (Acute) Inflamed epidermoid cyst of skin (Acute) Cellulitis (Acute) Pilonidal abscess (Acute) Status post hernia repair (Acute) Inguinal hernia (Acute) Right knee pain (Acute) Impingement syndrome, shoulder, left (Acute) Trapezius muscle spasm (Acute) Thumb pain (Acute) Shoulder pain (Acute) Dyslipidemia (Acute) Screening for malignant neoplasm of colon (Acute) Dizziness (Acute) Personal history of nicotine dependence (Acute) Status post incision and drainage (Acute) Tubular adenoma of colon (Acute) Past Medical History Medical History MRSA (methicillin resistant Staphylococcus aureus) Personal history of nicotine dependence Tubular adenoma of colon GERD (gastroesophageal reflux disease) Family History Family History Father Parkinsons disease Mother No problems noted. Family history of problems with anesthesia: No Surgical History Surgical History Hx of surgical procedure (04/26/24) Status post incision and drainage History of appendectomy History of right inguinal hernia repair History of colonoscopy History of Problems with Anesthesia: No 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 Housing: House Are you a primary cardiac care unit nurse to a significant other at home: No Do you presently have visiting nurse or other home services: No Alcohol intake: current Alcohol intake frequency: holidays/special occasions only Patient Tobacco Use Status: Current everyday Tobacco user Tobacco use type: Cigarette Cigarettes Per Day: 10 Years Smoked: 1990 Smoked in Last 30 Days: Yes e-Cigarette/Vaping Use: Never Used Patient Interested in Nicotine Replacement: No Second Hand Smoke Exposure: No Substance Use Type: Marijuana Substance Use Frequency: Daily Have you been hit, kicked, punched, or otherwise hurt by someone within the past year? If so, by whom?: No Are you DNR?: No Advance Directives: No Advance Directives Information Provided: Yes Poor oral hygiene: No service: No Current occupational status: retired Cognitive needs: No Hearing needs: No Vision needs: No Meds Allergies Allergy/AdvReac Type Severity Reaction Status Date / Time No Known Allergies Allergy Verified 09/12/24 08:10 Exam Height,Weight and Vital Signs: Height 5 ft 9 in Weight 88.451 kg Assessment and Plan Assessment Anesthesia Assessment: Chart Reviewed Final Anesthetic Review Family History of Problems with Anesthesia: No History of Problems with Anesthesia: No Documented by User: Mitali Amor MD 09/12/24 09:12 [facility] Past Medical History Medical History MRSA (methicillin resistant Staphylococcus aureus) Personal history of nicotine dependence Tubular adenoma of colon GERD (gastroesophageal reflux disease) Family History Family History Father Parkinsons disease Mother No problems noted. Surgical History Surgical History Hx of surgical procedure (04/26/24) Status post incision and drainage History of appendectomy History of right inguinal hernia repair History of colonoscopy 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 Housing: House Are you a primary cardiac care unit nurse to a significant other at home: No Do you presently have visiting nurse or other home services: No Alcohol intake: current Alcohol intake frequency: holidays/special occasions only Patient Tobacco Use Status: Current everyday Tobacco user Tobacco use type: Cigarette Cigarettes Per Day: 10 Years Smoked: 1990 Smoked in Last 30 Days: Yes e-Cigarette/Vaping Use: Never Used Patient Interested in Nicotine Replacement: No Second Hand Smoke Exposure: No Substance Use Type: Marijuana Substance Use Frequency: Daily Have you been hit, kicked, punched, or otherwise hurt by someone within the past year? If so, by whom?: No Are you DNR?: No Advance Directives: No Advance Directives Information Provided: Yes Poor oral hygiene: No service: No Current occupational status: retired Cognitive needs: No Hearing needs: No Vision needs: No Meds Allergies Allergy/AdvReac Type Severity Reaction Status Date / Time No Known Allergies Allergy Verified 09/12/24 08:10 Exam Airway Mallampati Class: II TM Dist: >3cm Neck ROM: Full Heart: rrr Lungs: cta Assessment and Plan Assessment Anesthesia Assessment: Anesthesia Plan Discussed Final Anesthetic Review NPO: Yes ASA Class: II Final Preanesthetic Review: No Changes in Pt Med Stat, Meds/Allgs Chart Reviewed, Consent Obtained/Reviewed and Anes Risks/Benef Reviewed Patient Risk: Low Procedure Risk: Low Anesthetic Plan Anesthetic Plan: MAC: Disposition: Standard PACU
[2024-09-12 08:07] VITALS: BMI 28.5
[2024-09-12] MEDS: Lactated Ringers 1,000 ML 100 ML IVCONT (08:19)
[2024-09-12 08:27] VITALS: BP 121/76; PULSE 74; RESP 18; TEMP 36.7; O2SAT 98
--- NOTE | 2024-09-12 09:26 | MHC.SHP ---
Pre-Procedural Eval Section A - 24 Hr Update-Section A only Date of Service: 09/12/24 The patient is an INPATIENT: No Changes since office visit: Yes Patient answered all questions; No Cold of Flu in the past 2 weeks, No New Medical Problems and No Changes in Medication The patient has been examined within 24 hours of the surgical procedure. The History & Physical has been completed within 30 days and I have reviewed it.: No Section B - Complete if H&P > 30 days Chief Complaint: Cutaneous abscess,postprocedural states Details of Present Illness: No change in symptoms Relevant Family History (Specify if Yes): No Relevant 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: None Present Medications: see Short Stay Collaborative assessment Medical History: No relevant PMH History of Previous Operations: Relevant previous surgery/procedure and date(s) (Previous incision and drainage x2) Allergies: Allergies Allergy/AdvReac Type Severity Reaction Status Date / Time No Known Allergies Allergy Verified 09/12/24 08:10 Review of Systems Sugical H&P ROS: Negative: Constitution, Cardiovascular, Respiratory, Hem-Onc, Gastrointestinal, Genitourinary, Musculoskeletal and Integumentary Exam Surgical H&P Exam: Normal: HEENT, Normal: Heart, Normal: Lungs, Normal: Extremities, Normal: Abdomen and Normal: Skin Plan Diagnosis/Plan: Unchanged I have reviewed the history and physical and performed a pertinent physical examination on my patient. No changes have occurred unless specified. Time Spent With Patient Time: Total time managing care of this patient today ____ minutes.
--- NOTE | 2024-09-12 09:35 | PC.NURSE ---
dr. hunter assessed patient back upon author request, bc no cysts are visible or felt. dr. hunter at bedside and stated that patient does not need surgery today. IV removed, and was only placed bc preop vancomycyin was ordered and if patient was going into OR then they could be started quicker. Patient was in agreeance of IV placement. IV removed and patient left with all belongings and signed belonging sheet. Patient to meet ride in lobby. Aware to call surgeon office if cysts become bothersome again.
== END ==
LOC: HO.SSS 07:57
PROVIDERS: PCP Internal Medicine; Visit Provider Surgery
DX: L02.91 Cutaneous abscess, unspecified (principal); Z53.8 Procedure and treatment not carried out for other reasons; Z98.890 Other specified postprocedural states
CPT/HCPCS: J2003; J2250; J2704; J3371

== ENCOUNTER 2025-01-07 10:54 | Outpatient (AMB) | payer MEDICARE, SELFPAY ==
--- NOTE | 2025-01-07 10:58 | A.OFFVIS_ITS ---
Vital Signs 01/07/25 11:00 Height 5 ft 9 in Weight 189 lb BMI 27.9 BP 132/74 Blood Pressure Location Lt brachial Position Sitting Pulse 74 Pulse Oximetry (%) 96 Oxygen Delivery Method Room Air Intake Visit Reasons: Colonoscopy Screening Intake Note: Patient new consult for 3rd pre Colonoscopy screening, Patient denies any GI issues. Special Forces Engineer Sergeant Required: No Accompanied by: Self / Same As Patient Allergies No Known Allergies Allergy (Verified 01/07/25 10:58) HPI HPI Colonoscopy Screening: Details: 74 year old? male with past medical history of dyslipidemia, tubular adenoma of colon is here today for pre colonoscopy screening.? Patient was sent to us by his PCP.? Last colonoscopy in [address] Harvey. Tubular adenoma found. However patient reports that he went for another colonoscopy after that. He was told to return for colorectal screening in 1 year. Patient thing that it was little over 5 years ago. Patient denies any gastrointestinal symptoms in the past or at present.? Denies any family history of CRC.? Denies history of difficulty with sedation or anesthesia in the past.? Negative for history of sleep apnea.? Denies any history of cardiac, renal, pulmonary, or hepatic disease.?? No history of infectious? diseases like hepatitis A, B, C, HIV or tuberculosis.? Patient is not on any anticoagulation [facility] Medical History MRSA (methicillin resistant Staphylococcus aureus) Personal history of nicotine dependence Tubular adenoma of colon GERD (gastroesophageal reflux disease) Surgical History Hx of surgical procedure (04/26/24) Status post incision and drainage History of appendectomy History of right inguinal hernia repair History of colonoscopy Family History Father Parkinsons disease Mother No problems noted. 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 Housing: House Are you a primary infant caregiver to a significant other at home: No Do you presently have visiting nurse or other home services: No Alcohol intake: current Alcohol intake frequency: holidays/special occasions only Patient Tobacco Use Status: Current everyday Tobacco user Tobacco use type: Cigarette Cigarettes Per Day: 10 Years Smoked: 1989 e-Cigarette/Vaping Use: Never Used Second Hand Smoke Exposure: No Substance Use Type: Marijuana service: No Current occupational status: retired Cognitive needs: No Hearing needs: No Vision needs: No Review of Systems Const Denies weight gain and Denies weight loss ENT Reports no additional complaints, Denies dysphagia and Denies odynophagia Card Reports no additional complaints Resp Reports no additional complaints GI Denies abdominal pain, Denies belching, Denies melena, Denies bloating, Denies change in bowel habits, Denies dysphagia, Denies excessive flatus, Denies dyspepsia, Denies heartburn, Denies diarrhea, Denies loose stools, Denies nausea, Denies odynophagia and Denies vomiting Reports no additional complaints Musc Reports no additional complaints Neuro Reports no additional complaints Psych Reports no additional complaints Endo Reports no additional complaints Physical Exam Vital Signs: Oxygen Delivery Method Room Air 01/07/25 11:00 Const General: healthy appearing, no acute distress and well developed Nutritional Appearance: well nourished Orientation/consciousness: patient oriented x3 Resp Effort & Inspection: normal respiratory effort, able to speak in complete sentences, no tracheal deviation and symmetric chest movement Auscultation: clear to auscultation bilaterally Cardio Rate: regular rate GI Inspection: Yes normal to inspection and No distended Palpation (GI): Soft to palpation, not firm, nontender and No hepatosplenomegaly present Auscultation: normal bowel sounds General: Yes no CVA tenderness Back/Spine/Pelvis Back: no CVA tenderness Skin General skin exam: elasticity normal, turgor normal and dry skin Neuro General: patient oriented x3 Psych Appearance: grossly normal Mental Status: mental status grossly normal Assessment & Plan Assessment & Plan (1) Screening for malignant neoplasm of colon: Code(s): Z12.11 - Encounter for screening for malignant neoplasm of colon Category: Medical Plan Patient denies any GI, cardiac or respiratory symptoms.? Denies any issues with anesthesia in the past.? Denies any history of sleep apnea.? No history infectious diseases in the past or present.? Not on any anticoagulation therapy.? No family history of colon cancer.? Patient denies melena, hematochezia, unintentional weight loss or ribbon like stools.? Discussed at length the pre-procedure,? prep, diet & medications as well as what to expect prior, during and after the procedure.?? Stressed the importance of good bowel prep.? Recommended the use of Vaseline or Calmoseptine OTC & baby wipes with bowel movements to promote comfort.? ?Patient verbalizes understanding and agrees to plan of care.? He was given the opportunity to ask questions and all questions answered.? We will see him after the procedure.? Medications: New polyethylene glycol 3350 (Miralax) As directed by gastroenterology department at [facility] 238 grams PO ONCE 238 grams 0RF Z12.11 - Encounter for screening for malignant neoplasm of colon bisacodyl (Dulcolax (bisacodyl)) take 4 tabs at noon the day before your colonoscopy 20 mg (4 x 5 mg) PO ONCE 4 tabs 0RF constipation 1 day Z12.11 - Encounter for screening for malignant neoplasm of colon Coding Level of Care Code New Pt Level 3 (82441) Diagnoses Screening for malignant neoplasm of colon Z12.11 Time Spent (min) 40 Comment 30 minutes spent with patient and additional 10 minutes spent reviewing his records
[2025-01-07 11:00] VITALS: BP 132/74; PULSE 74; O2SAT 96; BMI 27.9
--- OUTSIDE RECORDS SUMMARY | 2025-01-07 12:03 | XMS_ITS | Patient Health Record ---
Author Organization [facility] Address [address] [place] [address] Care Team Providers Care Pharmacist Intern Name Role Phone Gaurav Saldana MD Primary Care Provider Fernando Zamora Unavailable [phone] Reason For Referral No Information Plan Of Treatment No Information
--- OUTSIDE RECORDS SUMMARY | 2025-01-07 12:03 | XMS_ITS | Patient Health Record ---
Author Organization [facility] Address [address] [place] [address] Care Team Providers Care Production Helper Name Role Phone Gaurav Saldana MD Primary Care Provider Unavaila Guille Schmidt Unavailable [phone] Reason For Referral No Information Medications Medication SIG (Take, Route, Frequency, Duration) Notes Start Date End Date Status zzzASO Ankle/Foot Stabilizing AFO . As directed Wear Daily; Duration: as needed 03/18/2015 Active Problems No Known Problems Plan Of Treatment No Information Insurance Providers Payer Name Payer Address Payer Phone Subscriber Number Group Number Insured Name Patient Relationship to Insured Coverage Start Date Coverage End Date [facility] [address] [place] [id number] [phone] [id number] Gaurav Shi Self - patient is the insured Medical (General) History Medical History History ICD Code Chicken pox
--- OUTSIDE RECORDS SUMMARY | 2025-01-07 12:03 | XMS_ITS | Clinical Summary ---
Author Organization [facility] Address [address] [place] [address] Care Team Providers Care Champion Of Sustainable Design Name Role Phone Pcp, No Primary Care Provider Unavailabl e Allergies No known active allergies Medications cyclobenzaprine (FLEXERIL) 5 MG tablet TAKE 1-2 TABLETS BY MOUTH THREE TIMES DAILY NEEDED FOR MUSCLE SPASMS 11/18/2020 Active 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 Tobacco Use Types Packs/Day Years Used Date Smoking Tobacco: Never Assessed Sex and Gender Information Value Date Recorded Sex Assigned at Not on file Legal Sex Male 6:29 PM EST Gender Identity Not on file Sexual Orientation Not on file Last Filed Vital Signs Vital Sign Reading Time Taken Comments Blood Pressure 118/77 12/23/2020 3:19 PM EDT Pulse 75 12/23/2020 3:19 PM EDT Temperature 36.1 C (96.9 F) 12/23/2020 3:19 PM EDT Respiratory Rate - - Oxygen Saturation 99% [...] Zoster (Shingles) Vaccine (1 of 2) 2001 COVID-19 Vaccine ( - 2023-2 5 season) 2024 Influenza Vaccine 12/21/2024 RSV Vaccine 60 years and old er and Patients (1 - 1-dose 75+ series) 2026 Hepatitis B Vaccines Aged Out No long er eligible based on patient's age to complete this topic Insurance MEDICARE PART A & B Care Teams Champion Of Sustainable Design Relationship Specialty Start Date End Date Pcp, No PCP - General General Medicine 11/23/20
== END 2025-01-07 12:54 | disposition home or self-care (01) ==
LOC: HO.HGI 10:55
PROVIDERS: PCP Internal Medicine; Visit Provider Nurse Practitioner Family
DX: Z01.818 Encounter for other preprocedural examination (principal); Z12.11 Encounter for screening for malignant neoplasm of colon; Z86.0101 Personal history of adenomatous and serrated colon polyps
CPT/HCPCS: 99203

== ENCOUNTER → 2025-01-07 10:54 | Outpatient (BNVA) | payer MEDICARE, SELFPAY | PROVIDERS: PCP Internal Medicine; Visit Provider Nurse Practitioner Family | DX: Z12.11 Encounter for screening for malignant neoplasm of colon (principal) | CPT/HCPCS: 99202 ==

== ENCOUNTER 2025-02-26 08:23 | Day surgery (SDC) | payer MEDICARE, SELFPAY ==
--- OUTSIDE RECORDS SUMMARY | 2025-02-07 16:44 | XMS_ITS | Clinical Summary ---
Author Organization [facility] Address [address] [place] [address] Care Team Providers Care Divorce Attorney Name Role Phone Pcp, No Primary Care [...] Health Maintenance Due Date Last Done Comments Advance Care Planning 1950 Hepatitis C Virus Screening 1950 DTaP/Tdap/Td Vaccines (1 - Tdap) 1970 Colonoscopy 01/30/1996 Pneumococcal Vaccines 50+ (1 of 1 - PCV) 2001 Zoster (Shingles) Vaccine (1 of 2) 2001 Influenza Vaccine 12/21/2024 COVID-19 Vaccine ( - 2023-2 5 season) 2025 RSV Vaccine 60 years and old er and Patients (1 - 1-dose 75+ series) 2026 Hepatitis B Vaccines Aged Out No long er eligible based on patient's age to complete this topic Insurance MEDICARE PART A & B Care Teams Divorce Attorney Relationship Specialty Start Date End Date Pcp, No PCP - General General Medicine 11/23/20
--- NOTE | 2025-02-22 14:16 | HO.ANESPROP2 ---
HPI - Anesthesia Eval Consult details Narrative: 75yo M for Colonoscopy [facility] Active Problems Active Problems: All Active Problems Infection of skin due to methicillin resistant Staphylococcus aureus (MRSA) (Acute) Postoperative stitch abscess (Acute) Postop check (Acute) Status post incision and drainage (Acute) Sebaceous cyst (Acute) Vitamin D deficiency (Acute) Abscess (Acute) Inflamed epidermoid cyst of skin (Acute) Cellulitis (Acute) Pilonidal abscess (Acute) Status post hernia repair (Acute) Inguinal hernia (Acute) Right knee pain (Acute) Impingement syndrome, shoulder, left (Acute) Trapezius muscle spasm (Acute) Thumb pain (Acute) Shoulder pain (Acute) Dyslipidemia (Acute) Screening for malignant neoplasm of colon (Acute) Dizziness (Acute) Personal history of nicotine dependence (Acute) Status post incision and drainage (Acute) Tubular adenoma of colon (Acute) Past Medical History Medical History MRSA (methicillin resistant Staphylococcus aureus) Personal history of nicotine dependence Tubular adenoma of colon GERD (gastroesophageal reflux disease) Family History Family History Father Parkinsons disease Mother No problems noted. Family history of problems with anesthesia: No Surgical History Surgical History Hx of surgical procedure (04/26/24) Status post incision and drainage History of appendectomy History of right inguinal hernia repair History of colonoscopy History of Problems with Anesthesia: No 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 Housing: House Are you a primary laboratory animal care veterinarian to a significant other at home: No Do you presently have visiting nurse or other home services: No Alcohol intake: current Alcohol intake frequency: holidays/special occasions only Patient Tobacco Use Status: Current everyday Tobacco user Tobacco use type: Cigarette Cigarettes Per Day: 10 Years Smoked: 1989 e-Cigarette/Vaping Use: Never Used Second Hand Smoke Exposure: No Substance Use Type: Marijuana service: No Current occupational status: retired Cognitive needs: No Hearing needs: No Vision needs: No Meds Allergies Allergy/AdvReac Type Severity Reaction Status Date / Time No Known Allergies Allergy Verified 02/26/25 09:14 Assessment and Plan Assessment Anesthesia Assessment: Chart Reviewed Final Anesthetic Review Family History of Problems with Anesthesia: No History of Problems with Anesthesia: No
[2025-02-22 15:52] VITALS: BMI 27.9
[2025-02-26 09:15] VITALS: BP 124/80; PULSE 74; RESP 14; TEMP 36.6; O2SAT 96; BMI 27.9
[2025-02-26] MEDS: Lactated Ringers 1,000 ML 100 ML IVCONT (09:30)
--- NOTE | 2025-02-26 10:21 | MHC.SHP ---
Pre-Procedural Eval Section A - 24 Hr Update-Section A only Date of Service: 02/26/25 Section B - Complete if H&P > 30 days Chief Complaint: screening Relevant Family History (Specify if Yes): No Relevant 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: Tobacco Use Present Medications: see Short Stay Collaborative assessment Medical History: Significant History (MRSA (methicillin resistant Staphylococcus aureus) Personal history of nicotine dependence Tubular adenoma of colon GERD (gastroesophageal reflux disease)) History of Previous Operations: Relevant previous surgery/procedure and date(s) (Hx of surgical procedure (04/26/24) Status post incision and drainage History of appendectomy History of right inguinal hernia repair History of colonoscopy) Allergies: Allergies Allergy/AdvReac Type Severity Reaction Status Date / Time No Known Allergies Allergy Verified 02/26/25 09:14 Review of Systems Sugical H&P ROS: Negative: Constitution, Cardiovascular, Respiratory, Neurological, Psychiatric, Hem-Onc, Allergic/Immunologic, Gastrointestinal, Genitourinary, Musculoskeletal, Integumentary, Endocrine and Eyes/Ears/Nose/Throat Exam Surgical H&P Exam: Normal: HEENT, Normal: Heart, Normal: Lungs, Normal: Extremities, Normal: Abdomen, Normal: Skin and Normal: Neurological Plan Diagnosis/Plan: Unchanged I have reviewed the history and physical and performed a pertinent physical examination on my patient. No changes have occurred unless specified. Time Spent With Patient Time: Total time managing care of this patient today ____ minutes.
--- NOTE | 2025-02-26 11:03 | HO.OPN-COLON ---
Colonoscopy Operative Note Operative Note Date of Service: 02/26/25 Narrative: Operative Information Procedure Description: Colonoscopy Indication: screening Anesthesia: MAC COLONOSCOPY Instrument: Olympus variable stiffness pediatric scope 190L Colonoscopy Monitoring: Vital signs and clinical assessment, continuous EKG monitoring, Pulse oximetry, Carbon Dioxide monitoring and blood pressure monitoring were done throughout the procedure. Colon withdrawal time was 15 minutes. Procedure: The patient was placed in the left lateral decubitis position and pre-procedure medications were administered. After a digital rectal examination of the ano-rectum, the video colonoscope was inserted into the rectum and advanced through the colon to the cecum/TI. The colonoscope was slowly withdrawn in a retrograde panoramic fashion and the colon mucosa was carefully examined including a retroflexed view of the rectum. Findings and interventions are described below. Procedure Difficulty: easy-colowrap used Findings: Terminal Ileum-normal Cecum: 10 mm sessile polyp lifted with eleview and removed with cold snare Ascending Colon:moderate diverticulosis Transverse Colon -normal Descending Colon:normal Sigmoid Colon: moderate diverticulosis, 7-8 mm sessile polyp removed with cold snare Rectum: Retroflexion with small internal hemorrhoids seen, grade I Anorectum - normal Intervention: cold snare and eleview for EMR, cold snare Colon preparation: [place] Bowel Preparation Scale Right colon; 1-2 Transverse colon: 2 Left colon; 2 (0 = Unprepared colon segment with mucosa not seen due to solid stool that cannot be cleared. 1 = Portion of mucosa of the colon segment seen, but other areas of the colon segment not well seen due to staining, residual stool and/or opaque liquid. 2 = Minor amount of residual staining, small fragments of stool and/or opaque liquid, but mucosa of colon segment seen well. 3 = Entire mucosa of colon segment seen well with no residual staining, small fragments of stool or opaque liquid) Impression and Post Procedure Diagnosis: diverticulosis colon polyps x2 internal hemorrhoids Plan: High fiber diet leaflet Avoid straining at stool, epsom salts and sitz bath, anusol supps or cream Repeat Colonoscopy in 3 years due to polyps and some areas of fair prep or earlier if clinically indicated Above findings were reviewed with the patient and relevant handouts were provided if indicated.
[2025-02-26 11:08] VITALS: BP 98/62; PULSE 79; RESP 14; TEMP 36.6; O2SAT 94
[2025-02-26 11:15] VITALS: BP 104/65; PULSE 79; RESP 14; TEMP 36.6; O2SAT 96
[2025-02-26 11:30] VITALS: BP 126/69; PULSE 72; RESP 14; TEMP 36.6; O2SAT 98
[2025-02-26 11:42] VITALS: BP 130/74; PULSE 65; RESP 14; TEMP 36.6; O2SAT 98
== END 2025-02-26 12:16 | disposition home or self-care (01) ==
PROVIDERS: PCP Internal Medicine; Visit Provider Internal Medicine Gastroenterology
PROC: 0DJD8ZZ Inspection of Lower Intestinal Tract, Via Natural or Artificial Opening Endoscopic (ICD-10-PCS; CPT 45378; principal; 2025-02-26 11:00)
DX: Z12.11 Encounter for screening for malignant neoplasm of colon (principal); Z86.0101 Personal history of adenomatous and serrated colon polyps; K57.30 Diverticulosis of large intestine without perforation or abscess without bleeding; D12.5 Benign neoplasm of sigmoid colon; K64.0 First degree hemorrhoids; D12.0 Benign neoplasm of cecum
CPT/HCPCS: 45380; 45385; 45381; 88305; J2003; J2704; J3010

== ENCOUNTER → 2025-02-26 08:23 | Outpatient (BNV) | payer MEDICARE, SELFPAY | PROVIDERS: PCP Internal Medicine; Visit Provider Internal Medicine Gastroenterology | DX: Z12.11 Encounter for screening for malignant neoplasm of colon (principal); D12.0 Benign neoplasm of cecum; D12.5 Benign neoplasm of sigmoid colon; K57.90 Diverticulosis of intestine, part unspecified, without perforation or abscess without bleeding; K64.0 First degree hemorrhoids | CPT/HCPCS: 45381; 45385 ==

== ENCOUNTER 2025-03-04 11:57 | Outpatient (AMB) | payer MEDICARE, SELFPAY ==
--- OUTSIDE RECORDS SUMMARY | 2025-03-04 12:00 | XMS_ITS | Patient Health Record ---
Author Organization [facility] Address [address] [place] [id number] Care Team Providers Care Dross Skimmer Name Role Phone Gaurav Saldana MD Primary Care Provider Fernando Zamora Unavailable [phone] Reason For Referral No Information Plan Of Treatment No Information
--- OUTSIDE RECORDS SUMMARY | 2025-03-04 12:00 | XMS_ITS | Clinical Summary ---
Author Organization [facility] Address [address] [place] [address] Care Team Providers Care Tablet Repair Name Role Phone Pcp, No Primary Care [...] MEDICARE PART A & B Care Teams Tablet Repair Relationship Specialty Start Date End Date Pcp, No PCP - General General Medicine 11/23/20
--- OUTSIDE RECORDS SUMMARY | 2025-03-04 12:00 | XMS_ITS | Patient Health Record ---
Author Organization [facility] Address [address] [place] [address] Care Team Providers Care Production Controller Name Role Phone Gaurav Saldana MD Primary Care Provider Unavaila Guille Schmidt Unavailable [phone] Reason For Referral No Information Medications Medication [...] Insured Coverage Start Date Coverage End Date [facility] [address] [facility] [place] [phone] [id number] Gaurav Shi Self - patient is the insured Medical (General) History Medical History History ICD Code Chicken pox
[2025-03-04 12:05] VITALS: BP 110/66; PULSE 74; TEMP 36.7; O2SAT 97; BMI 28.4
--- NOTE | 2025-03-04 12:05 | MHC.OFFWIV ---
Intake Vital Signs 03/04/25 12:05 Height 5 ft 9 in Weight 192 lb BMI 28.4 BP 110/66 Blood Pressure Location Lt brachial Position Sitting Pulse 74 Pulse Source Pulse Oximeter Temp 98.1 F Temp Source Oral Pulse Oximetry (%) 97 Oxygen Delivery Method Room Air Intake Visit Reasons: EP-lower back cyst Intake Note: pt presents with painful lesion to gluteal cleft Patient Tobacco Use Status: Current everyday Tobacco user Allergies No Known Allergies Allergy (Verified 03/04/25 12:12) Do you need a note to return to daycare/school/sports/work: No HPI HPI Comments History of Present Illness Details History of Present Illness - The patient is a 75-year-old male presenting with a recurrent cyst. - The cyst reappeared last week and was initially mistaken for a pimple. - Previous cysts have been surgically treated by Dr. Pierre at [facility]. - The patient has experienced different outcomes from past surgical interventions. - The current cyst is small, dry, and not actively draining. - He has pain when he touches it or sits. - He has had multiple cysts in the past. - He denies fever, chills, discharge or bleeding. - He wants to see his surgeon. Physical Exam General: Cooperative, healthy appearing, comfortable, no acute distress and well developed Orientation: Patient oriented x3 Respiratory: Normal respiratory effort and able to speak in complete sentences. Clear to auscultation bilaterally Cardiovascular: Regular rate and rhythm. Normal S1 and S2 Skin: No rashes or lesions noted. Small slightly raised, tender, non- fluctuant round lesion noted on the left gluteal cleft. No erythema noted, no streaking, dry, no discharge noted. Patient was informed and verbally consented to the use of an ambient scribe for clinic note documentation during this visit. [facility] Medical History MRSA (methicillin resistant Staphylococcus aureus) Personal history of nicotine dependence Tubular adenoma of colon GERD (gastroesophageal reflux disease) Surgical History Hx of surgical procedure (04/26/24) Status post incision and drainage History of appendectomy History of right inguinal hernia repair History of colonoscopy Family History Father Parkinsons disease Mother No problems noted. 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 Housing: House Are you a primary health care analyst to a significant other at home: No Do you presently have visiting nurse or other home services: No Alcohol intake: current Alcohol intake frequency: holidays/special occasions only Patient Tobacco Use Status: Current everyday Tobacco user Tobacco use type: Cigarette Cigarettes Per Day: 10 Years Smoked: 1989 e-Cigarette/Vaping Use: Never Used Second Hand Smoke Exposure: No Substance Use Type: Marijuana service: No Current occupational status: retired Cognitive needs: No Hearing needs: No Vision needs: No Review of Systems Const All systems reviewed & are unremarkable except as noted in HPI and below Physical Exam Vital Signs: Last Vital Signs Temp 98.1 F 03/04/25 12:05 Pulse 74 03/04/25 12:05 BP 110/66 03/04/25 12:05 Pulse Ox 97 03/04/25 12:05 Oxygen Delivery Method Room Air 03/04/25 12:05 BMI result Body Mass Index 28.4 Assessment & Plan Assessment & Plan (1) Abscess: Code(s): L02.91 - Cutaneous abscess, unspecified Plan Most likely cyst vs pilonidal cyst plan - tylenol or motrin as needed for pain - warm compresses or soaks to the area - offered an I&D in the office today and he refused - wants to call his surgeon in the morning - start doxycycline 100 mg BID - follow up with PCP Medications: New doxycycline hyclate 100 mg PO BID 14 tabs 0RF Coding Level of Care Code Est Pt Level 3 (43722) Diagnoses Abscess L02.91
== END 2025-03-04 13:02 | disposition home or self-care (01) ==
PROVIDERS: PCP Internal Medicine; Visit Provider Physician Assistant Medical
DX: L02.91 Cutaneous abscess, unspecified (principal)

== ENCOUNTER → 2025-03-04 11:57 | Outpatient (BNVA) | payer MEDICARE, SELFPAY | PROVIDERS: PCP Internal Medicine; Visit Provider Physician Assistant Medical | DX: L02.212 Cutaneous abscess of back [any part, except buttock and flank] (principal) | CPT/HCPCS: 99212 ==

== ENCOUNTER 2025-03-08 09:23 | Outpatient (AMB) | payer MEDICARE, SELFPAY ==
--- NOTE | 2025-03-08 09:28 | A.OFFVIS_ITS ---
Vital Signs 03/08/25 09:35 Height 5 ft 9 in Weight 191 lb 12.835 oz BMI 28.3 BP 110/70 Blood Pressure Location Lt brachial Position Sitting Intake Visit Reasons: painful cyst lower back *on abx Intake Note: Patient is seen in office for a cyst of the lower back. Pt c/o: has a cyst on the coccyx for 2 weeks, was seen on urgent care, was given abx and is still taking them, denies discharge, redness, warm to the touch, notice has a head ready to explode [id number]:03/04/25 Hub Associate Required: No Accompanied by: Self / Same As Patient Allergies No Known Allergies Allergy (Verified 03/08/25 09:35) Medication List - Last Reconciled 03/08/25 by Joe Pierre MD bisacodyl (Dulcolax (bisacodyl)) 20 mg PO ONCE PRN cholecalciferol (vitamin D3) 25 mcg PO DAILY 90 days doxycycline hyclate 100 mg PO BID mupirocin calcium 2% 1 appl topical BID oxycodone 5 mg PO Q8H PRN polyethylene glycol 3350 (Miralax) 238 grams PO ONCE PRN HPI Comments Details: 75-year-old male patient returning to the office for evaluation of a new cyst which developed over the coccyx. This started over the weekend as a small pimple but then became quite swollen and painful. He was seen in the walk-in center and started on doxycycline. Since starting the antibiotics he reports feeling much improved with no significant pain. He is concerned that there is a yellow [place] at the base of the wound is concerned that he may need incision and drainage. He denies any fever or chills at this time. He has a prior history of MRSA infections in the back. [facility] Medical History MRSA (methicillin resistant Staphylococcus aureus) Personal history of nicotine dependence Tubular adenoma of colon GERD (gastroesophageal reflux disease) Surgical History Hx of surgical procedure (04/26/24) Status post incision and drainage History of appendectomy History of right inguinal hernia repair History of colonoscopy Family History Father Parkinsons disease Mother No problems noted. 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 Housing: House Are you a primary student career development specialist to a significant other at home: No Do you presently have visiting nurse or other home services: No Alcohol intake: current Alcohol intake frequency: holidays/special occasions only Patient Tobacco Use Status: Current everyday Tobacco user Tobacco use type: Cigarette Cigarettes Per Day: 10 Years Smoked: 1989 e-Cigarette/Vaping Use: Never Used Second Hand Smoke Exposure: No Substance Use Type: Marijuana service: No Current occupational status: retired Cognitive needs: No Hearing needs: No Vision needs: No Review of Systems Const All systems reviewed & are unremarkable except as noted in HPI and below Physical Exam Const General: no acute distress Nutritional Appearance: well nourished Orientation/consciousness: patient oriented x3 Limitations: no limitations Resp Effort & Inspection: normal respiratory effort GI Inspection: Yes normal to inspection Back/Spine/Pelvis Other: Small pilonidal cyst on the left gluteal fold measuring approximately 1.5 cm in diameter. Minimal erythema is noted and no fluctuance is palpable at this time. No abscess could be identified. Neuro General: patient oriented x3 Assessment & Plan Assessment & Plan (1) Pilonidal abscess: Code(s): L05.01 - Pilonidal cyst with abscess Category: Medical Plan Patient presents with a new pilonidal cyst which has improved significantly since starting antibiotics. Examination today reveals the residual erythema but no evidence of an abscess collection. I therefore recommended extending the antibiotics another week and a follow-up examination in approximately 2 weeks. He should continue to keep the area clean. He should call for any new concerns. Medications: Refilled doxycycline hyclate 100 mg PO BID 14 tabs 0RF Coding Level of Care Code Est Pt Level 3 (95862) Diagnoses Pilonidal abscess L05.01
[2025-03-08 09:35] VITALS: BP 110/70; BMI 28.3
--- OUTSIDE RECORDS SUMMARY | 2025-03-08 10:26 | XMS_ITS | Clinical Summary ---
Author Organization [facility] Address [address] [place] [address] Care Team Providers Care Air Grinder Name Role Phone Pcp, No Primary Care [...] - 2023-2 5 season) 2025 RSV Vaccine 50 years and old er and Patients (1 - 1-dose 75+ series) 2026 Hepatitis B Vaccines Aged Out No long er eligible based on patient's age to complete this topic Insurance MEDICARE PART A & B Care Teams Air Grinder Relationship Specialty Start Date End Date Pcp, No PCP - General General Medicine 11/23/20
== END 2025-03-08 09:59 | disposition home or self-care (01) ==
LOC: HO.HGS 09:23
PROVIDERS: PCP Internal Medicine; Visit Provider Surgery
DX: L05.01 Pilonidal cyst with abscess (principal)
CPT/HCPCS: 99213

== ENCOUNTER → 2025-03-08 09:23 | Outpatient (BNVA) | payer MEDICARE, SELFPAY | PROVIDERS: PCP Internal Medicine; Visit Provider Surgery | DX: L05.01 Pilonidal cyst with abscess (principal); Z79.2 Long term (current) use of antibiotics | CPT/HCPCS: 99212 ==

== ENCOUNTER 2025-03-15 11:21 | Outpatient (AMB) | payer MEDICARE, SELFPAY ==
--- NOTE | 2025-03-15 11:28 | A.OFFVIS_ITS ---
Intake Vital Signs 03/15/25 11:30 Height 5 ft 9 in Weight 196 lb BMI 28.9 BP 114/64 Blood Pressure Location Rt brachial Position Sitting Respiration 16 Pulse 68 Pulse Source Pulse Oximeter Pulse Oximetry (%) 98 Oxygen Delivery Method Room Air Intake Visit Reasons: AWV Allergies No Known Allergies Allergy (Verified 03/15/25 11:33) Medication List - Last Reconciled 03/15/25 by Denzel Key MD cholecalciferol (vitamin D3) 25 mcg PO DAILY 90 days doxycycline hyclate 100 mg PO BID HPI AWV HPI Details History of Present Illness The patient is a 75-year-old male presenting with issues related to a Pilonidal cyst, a chronic rash, and smoking cessation. Buttock cyst: - The patient reports recurrent cyst - The cyst reoccurs annually, typically around the same time. - Last year, he experienced a series of multiple cysts. - Initially, there was no need for surge ry due to timely antibiotic treatment. - Currently managed on antibiotics as pr escribed by Dr. Pierre, who has advised against surgical intervention for the current episode. - Episode seems milder than the previous year, and no surgical intervention was necessary. Chronic rash: - Described as a rash located in the [place]ale in area. - Occasionally itches, more prominently at night. - Previously managed with vdct-bmm-fgxxv er antifungal treatments, but recurrent in nature. - The rash has persisted long enough tobi t it has resulted in pigmentation changes where the rash was previously active. Smoking cessation: - The patient has a long history of ciga rette smoking but has significantly reduced consumption by approximately 80% after a coughing episode. - Currently smokes an estimated three to four cigarettes per day. - Demonstrates a strong motivation to fu rther reduce and eventually quit smoking entirely. 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 and healthcare proxy - Actively pursuing smoking cessation, c urrently reduced to three to four cigarettes daily - Reports a supportive family structure; potential healthcare proxy is Natalie Diagnostic Results: - Colonoscopy with findings that are of non-urgent nature; next screening in three years - Pending bloodwork for kidney, liver fu nction, blood count, cholesterol, and vitamin D levels - Scheduled hearing test Problem List - Chronic groin rash (Tinea cruris) curr ently active, paitent requesting assistance - Smoking history with a focus on cessat ion Plan - Prescribed an antifungal cream for the groin rash, use is advised for 10-14 days. - Advised to maintain dry skin, using a hairdryer after bathing and applying powder post-clearance of the rash. - Bloodwork has been ordered for routine health checks; specific tests include kidney and liver function, complete blood count, cholesterol levels, and vitamin D. - Encouraged continuation of gradual smo kortney reduction with a goal of complete cessation. - Discussed health care proxy paperwork for discussion with family. - Two vaccines were identified as due an d recommended: pneumonia 20-valent vaccine and tetanus vaccine. Advised to pursue vaccinations at a pharmacy. 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 HPI Comments History of Present Illness Details AWV Medical/social history reviewed Past medical history reviewed Dozier of care / care team list updated Surgical/ hospitalization history reviewed Current medications including OTC and supplements reviewed Family history reviewed Tobacco controlled form updated Alcohol use form updated Illicit drug use in social history reviewed Current diagnosis of depression ?screening updated Appropriate PHQ 2/PHQ-9 completed . Vital signs reviewed Alcohol tobacco drug use reviewed and discussed . MMSE completed . ? Fall risk: ?Assessed Fall history: ?None Have you had any falls with injury in the past year?? No Have you had 2 or more falls in the past year?? No Fall risk assessment completed Home safety discussed with the patient Functional ability assessed and discussed and documented Activities of daily living reviewed and appropriate actions taken . HRA filled out by the patient and reviewed by provider and scanned . Appropriate written screening schedule established . Any health advise needed provided . Advance care planning discussed with the patient , necessary paperwork filled Examination IPPE/AWE: Balance intact Romberg intact Tandem walk intact walk-in turn intact rise from sit to stand intact . ?Hearing ?whisper test pass . Medication list reviewed, patient is stable on medications All other providers patient is seeing discussed and noted . [facility] Medical History MRSA (methicillin resistant Staphylococcus aureus) Personal history of nicotine dependence Tubular adenoma of colon GERD (gastroesophageal reflux disease) Surgical History Hx of surgical procedure (04/26/24) Status post incision and drainage History of appendectomy History of right inguinal hernia repair History of colonoscopy Family History Father Parkinsons disease Mother No problems noted. 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 Housing: House Are you a primary respiratory care technician to a significant other at home: No Do you presently have visiting nurse or other home services: No Alcohol intake: current Alcohol intake frequency: holidays/special occasions only Patient Tobacco Use Status: Current everyday Tobacco user Tobacco use type: Cigarette Cigarettes Per Day: 10 Years Smoked: 1989 e-Cigarette/Vaping Use: Never Used Second Hand Smoke Exposure: No Substance Use Type: Marijuana service: No Current occupational status: retired Cognitive needs: No Hearing needs: No Vision needs: No Questionnaire Medicare Wellness Checkup [age] What gender do you identify with?: male During the past 4 weeks, how much have you been bothered by emotional problems such as feeling anxious, depressed, irritable, sad or downhearted, and blue?: not at all During the past 4 weeks, has your physical & emotional health limited your social activities with family, friends, neighbors, or groups?: not at all During the past 4 weeks, how much bodily pain have you generally had?: moderate pain During the past 4 weeks, was someone available to help you if you needed & wanted help?: no, not at all During the past 4 weeks, what was the hardest physical activity you could do for at least 2 minutes?: heavy Can you get to places out of walking distance without help? (For eg., can you travel alone on buses, taxis or drive your car?): Yes Can you go shopping for groceries or clothes without someone's help?: Yes Can you prepare your own meals?: Yes Can you do your housework without help?: Yes Because of any health problems, do you need the help of another person with your personal care needs such as eating, bathing, dressing or getting around the house?: No Can you handle your own money without help?: Yes During the past 4 weeks, how would you rate your health in general?: very good During the past 4 weeks how have things been going for you?: pretty well Are you having difficulties driving your car?: no Do you always fasten your seat belt when you are in a car?: yes, usually During past 4 weeks, have you been bothered by the following: never: Falling or dizzy when standing up, Sexual problems?, Trouble eating well?, Teeth or denture problems?, Problems using the telephone? and Tiredness or fatigue? Have you fallen 2 or more times in the past year?: No Are you afraid of falling?: No Are you a smoker?: yes, but I'm not ready to quit During the past 4 weeks, how many drinks of wine, beer, or other alcoholic be verages did you have?: 1 drink or less per week Do you exercise for about 20 minutes 3 or more times a week?: yes, most of the time Have you been given information to help with the following?: no: Hazards in your house that might hurt you? and no: Keeping track of your medications? How often do you have trouble taking medicines the way you have been told to take them?: I always take medicine as prescribed How confident are you that you can control & manage most of your health problems?: very confident What is your race?: White Mini Mental State Exam (MMSE) Orientation What is the (year) (season) (date) (day) (month)?: year (2024), season (fall), date, day (tuesday) and month Where are we (state) (county) (town or city) (hospital) (floor)?: state ([facility]), [facility] ([place]), town or city ([place]) and [place] Score Score: 9 Activity of Daily Living Bathing - sponge bath, tub bath or shower: receives help in bathing more than one body part (or not bathed) Dressing - getting clothes from closets & drawers, including inner/outer garment s & fasteners.: gets clothes & gets completely dressed without help Toileting - going to the 'toilet room' for urine/bowel elimination & cleaning self/arranging clothes: goes to toilet room, cleans self, arranges clothes without help Transfer: moves in & out of bed and chair without help (may use support object) Continence: controls urination/bowel movements completely by self Feeding: feeds self without help Total Score: 1 Information obtained from: patient Using telephone: independent Traveling: independent Shopping: independent Preparing meals: independent Housework: independent Taking medicine: independent Managing money: independent PHQ-9 Over the last 2 weeks, how often have you been bothered by any of the following problems? 1. Little interest or pleasure in doing things: not at all 2. Feeling down, depressed, or hopeless: not at all 3. Trouble falling or staying asleep, or sleeping too much: not at all 4. Feeling tired or having little energy: not at all 5. Poor appetite or overeating: not at all 6. Feeling bad about yourself - or that you are a failure or have let yourself or your family down: not at all 7. Trouble concentrating on things, such as reading the newspaper or watching television: not at all 8. Moving or speaking so slowly that other people could have noticed. Or the opposite - being so fidgety or restless that you have been moving around a lot more than usual: not at all 9. Thoughts that you would be better off or of hurting yourself in some way: not at all Total score: 0 Depression Screening Interpretation: Negative Depression Screening Done: Yes 82790 - PHQ-9 Billing: Yes Source: Developed by Drs. Fernando Moncada, Ami Ram, Elan Dominguez and colleagues, with an educational nicki from [employer] Physical Exam Vital Signs: Last Vital Signs Pulse 68 03/15/25 11:30 Resp 16 03/15/25 11:30 BP 114/64 03/15/25 11:30 Pulse Ox 98 03/15/25 11:30 Oxygen Delivery Method Room Air 03/15/25 11:30 BMI result Body Mass Index 28.9 Assessment & Plan Assessment & Plan (1) Medicare annual wellness visit, subsequent: Code(s): Z00.00 - Encounter for general adult medical examination without abnormal fi ndings (2) Tinea corporis: Code(s): B35.4 - Tinea corporis (3) Tubular adenoma of colon: Comment: (TAs in 2002, HPs in 2009) Code(s): D12.6 - Benign neoplasm of colon, unspecified (4) Pilonidal abscess: Code(s): L05.01 - Pilonidal cyst with abscess (5) Tobacco use: Code(s): Z72.0 - Tobacco use (6) Vitamin D deficiency: Code(s): E55.9 - Vitamin D deficiency, unspecified (7) Immunizations incomplete: Code(s): Z28.39 - Other underimmunization status Plan Buttock cyst: - The patient reports recurrent cyst - The cyst reoccurs annually, typically around the same time. - Last year, he experienced a series of multiple cysts. - Initially, there was no need for surgery due to timely antibiotic treatment. - Currently managed on antibiotics as prescribed by Dr. Pierre, who has advised against surgical intervention for the current episode. - Episode seems milder than the previous year, and no surgical intervention was necessary. Chronic rash: - Described as a rash located in the groin area. - Occasionally itches, more prominently at night. - Previously managed with ghqd-vsv-sfzxtum antifungal treatments, but recurrent in nature. - The rash has persisted long enough that it has resulted in pigmentation changes where the rash was previously active. Smoking cessation: - The patient has a long history of cigarette smoking but has significantly reduced consumption by approximately 80% after a coughing episode. - Currently smokes an estimated three to four cigarettes per day. - Demonstrates a strong motivation to further reduce and eventually quit smoking entirely. 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 - Actively pursuing smoking cessation, currently reduced to three to four cigarettes daily - Reports a supportive family structure; potential healthcare proxy is Natalie Diagnostic Results: - Colonoscopy with findings that are of non-urgent nature; next screening in three years - Pending bloodwork for kidney, liver function, blood count, cholesterol, and vitamin D levels - Scheduled hearing test Problem List - Chronic groin rash (Tinea cruris) currently active, paitent requesting assistance - Smoking history with a focus on cessation - Pilonidal cyst - Tobacco use disorder - Health care Proxy needed - Immunizations incomplete Plan - Prescribed an antifungal cream for the groin rash, use is advised for 10-14 days. - Advised to maintain dry skin, using a hairdryer after bathing and applying powder post-clearance of the rash. - Bloodwork has been ordered for routine health checks; specific tests include kidney and liver function, complete blood count, cholesterol levels, and vitamin D. - Encouraged continuation of gradual smoking reduction with a goal of complete cessation. - Discussed health care proxy paperwork for discussion with family. - Two vaccines were identified as due and recommended: pneumonia 20-valent vaccine and tetanus vaccine. Advised to pursue vaccinations at a pharmacy. Orders: Orders Comprehensive [place]. Panel Fast 03/15/25 E55.9 - Vitamin D deficiency, unspecified, Z00.00 - Encounter for general adult medical examination without abnormal findings Complete Blood Count Auto Diff 03/15/25 E55.9 - Vitamin D deficiency, unspecified, Z00.00 - Encounter for general adult medical examination without abnormal findings Lipid Panel 03/15/25 E55.9 - Vitamin D deficiency, unspecified, Z00.00 - Encounter for general adult medical examination without abnormal findings Vitamin D 25-OH (D2 and D3) 03/15/25 E55.9 - Vitamin D deficiency, unspecified, Z00.00 - Encounter for general adult medical examination without abnormal findings Prostate Specific Antigen 03/15/25 E55.9 - Vitamin D deficiency, unspecified, Z00.00 - Encounter for general adult medical examination without abnormal findings Medications: New ketoconazole 2% 1 appl topical DAILY 60 grams 0RF Quality Reporting (2019) Depression/Bipolar (159/160/161/177) PHQ-9: Total score: 0 Coding Level of Care Code Medicare Subsequent (G0439) Est Pt Level 3 (54706) Diagnoses Medicare annual wellness visit, subsequent Z00.00 Tinea corporis B35.4 Tubular adenoma of colon D12.6 Pilonidal abscess L05.01 Tobacco use Z72.0 Vitamin D deficiency E55.9 Immunizations incomplete Z28.39 CPT Codes Advance Care Planning - Time spent: 1-15 minutes, on File ([id number]) Additional Codes PHQ-9 - 33822 - PHQ-9 Billing: Yes ([id number]) Advance Care Planning Forms completed: Health Care Proxy Time spent: 1-15 minutes, on File Actual minutes spent: 10
[2025-03-15 11:30] VITALS: BP 114/64; PULSE 68; RESP 16; O2SAT 98; BMI 28.9
--- OUTSIDE RECORDS SUMMARY | 2025-03-15 13:43 | XMS_ITS | Patient Health Record ---
Author Organization [facility] Address [address] [place] [id number] Care Team Providers Care Column Precaster Name Role Phone Gaurav Saldana MD Primary Care Provider Fernando Zamora Unavailable [phone] Reason For Referral No Information Plan Of Treatment No Information
--- OUTSIDE RECORDS SUMMARY | 2025-03-15 13:43 | XMS_ITS | Clinical Summary ---
Author Organization [facility] Address [address] [place] [address] Care Team Providers Care Juke Box Mechanic Name Role Phone Pcp, No Primary Care [...] MEDICARE PART A & B Care Teams Juke Box Mechanic Relationship Specialty Start Date End Date Pcp, No PCP - General General Medicine 11/23/20
--- OUTSIDE RECORDS SUMMARY | 2025-03-15 13:43 | XMS_ITS | Patient Health Record ---
Author Organization [facility] Address [address] [address] Care Team Providers Care Clay Washer Name Role Phone Gaurav Saldana MD Primary Care Provider Unavaila Guille Schmidt Unavailable [phone] Reason For Referral No Information Medications Medication [...] Insured Coverage Start Date Coverage End Date [facility] [address] [facility] [place] [phone] [id number] Gaurav Shi Self - patient is the insured Medical (General) History Medical History History ICD Code Chicken pox
== END 2025-03-15 12:06 | disposition home or self-care (01) ==
LOC: HO.HMCC 11:21
PROVIDERS: PCP Internal Medicine; Visit Provider Internal Medicine
DX: Z00.00 Encounter for general adult medical examination without abnormal findings (principal); B35.4 Tinea corporis; D12.6 Benign neoplasm of colon, unspecified; L05.01 Pilonidal cyst with abscess; Z72.0 Tobacco use; E55.9 Vitamin D deficiency, unspecified; Z28.39 Other underimmunization status

== ENCOUNTER → 2025-03-15 11:21 | Outpatient (BNVA) | payer MEDICARE, SELFPAY | PROVIDERS: PCP Internal Medicine; Visit Provider Internal Medicine | DX: B35.4 Tinea corporis (principal); D12.6 Benign neoplasm of colon, unspecified; L05.01 Pilonidal cyst with abscess; Z72.0 Tobacco use; E55.9 Vitamin D deficiency, unspecified; Z28.39 Other underimmunization status; R21 Rash and other nonspecific skin eruption; Z13.39 Encounter for screening examination for other mental health and behavioral disorders | CPT/HCPCS: 96127; 99212 ==